=== PATIENT | male | born 1960 | race Caucasian/White ===

== ENCOUNTER 2018-12-15 18:49 | Emergency (ER) | payer BC, SELFPAY ==
[2018-12-15 18:50] VITALS: BP 150/98; PULSE 100; RESP 16; TEMP 36; O2SAT 96; BMI 28.5
--- NOTE | 2018-12-15 19:01 | CT_ITS ---
STUDY: CT ABDOMEN AND PELVIS WITHOUT CONTRAST REASON FOR EXAM: Male, 58 years old. Nausea and vomiting with diarrhea for 4 days. RADIATION DOSAGE (If Supplied By Facility): CTDIvol = ( 11.50 ) mGy, DLP = ( 566.01 ) mGycm TECHNIQUE: Transaxial images were obtained from the dome of the diaphragm to the symphysis pubis without oral contrast, and without intravenous contrast. Sagittal and coronal images were reconstructed. Individualized dose optimization techniques were used for this CT. COMPARISON: 01 September 2014 FINDINGS: The visualized lung bases are unremarkable. The visualized portions of the heart are within normal limits. Normal liver. Normal gallbladder and extrahepatic biliary system. Normal spleen. Normal pancreas. There is a small, circumscribed, smooth, low attenuation left adrenal mass, consistent with an adrenal adenoma. Normal right adrenal gland. Small hypodensity within the anterior superior cortex of the right kidney is present consistent with likely underlying cyst measuring 1.3 cm. Normal left kidney. Normal visualized stomach. Normal small intestine. Normal colon. The appendix is visualized and appears normal. Normal abdominal aorta. Normal inferior vena cava. Normal retroperitoneum. Normal urinary bladder. There is enlargement of the prostate gland. There is a large left inguinal hernia containing colonic bowel with no evidence of obstruction or inflammation. Small fat-containing right inguinal hernia is also noted. Small umbilical fat-containing hernia is also noted. There are diffuse degenerative changes of the visualized lumbar spine. CT/Abdomen/Pelvis without Cont IMPRESSION: 1. Large left colonic containing inguinal hernia with no evidence of obstruction or inflammation. Right inguinal fat-containing hernia is also noted. 2. Left adrenal adenoma. Electronically Signed: Robel Maxwell DO at 20:27 EST , Service support ,
--- NOTE | 2018-12-15 19:07 | ED.DCSUM_ITS ---
- ER Visit Summary Date of Service: 12/15/18 Chief Complaint: Abdominal pain, nausea vomiting and diarrhea History of Present Illness: The patient is a 58 M who presents with the above symptoms. Started 4 days ago. He has sharp pains in the left part of his abdomen. It does not radiate. He has had nausea with vomiting as well as diarrhea. No blood in any of the vomiting or diarrhea. He denies any urinary symptoms. He took nothing for it at home. He denies any fevers. Physical Examination: Vital signs reviewed. HEENT exam unremarkable. Heart is regular rate and rhythm without murmurs. Lungs have inhibitory and expiratory wheezing bilaterally. Abdomen is soft with left-sided tenderness to palpation. Extremities reveal no edema. Neurologic exam normal. Test Results: Laboratory studies show glucose of 155 otherwise unremarkable. CAT scan reveals an inguinal hernia on the left with no obstruction. Emergency Department Course and Treatment: Oral Bentyl, Zofran and albuterol. He feels much better. I feel this is likely a viral etiology. He will need to see a surgeon as an outpatient for his inguinal hernia. I do not feel he requires any emergent consultation as he has no obstruction associated with this. It is not incarcerated or strangulated. Patient will be given Bentyl and Zofran as an outpatient. He will follow-up with his PCP Treatment Plan: [] Disposition: Discharge Impression: Abdominal pain, nausea vomiting and diarrhea This note was generated with [employer] dictation software. It may contain incorrect words, spelling, and punctuation that were not noted in review of the chart prior to signing ED Disposition - Plan for ED Patient: Chief Complaint: Nausea/Vomiting/Diarrhea Referrals: Angel Loya DO [Primary Care Provider] -
[2018-12-15] MEDS: Ondansetron 4 MG/2 ML Vial IV (19:20)
[2018-12-15 19:34] LABS: Absolute Neutrophil Count 6.1 X10^3/uL (2.0-7.7); Basophil# 0.01 X10^3/uL; Basophil% 0.1 % (0-1); Eosinophil# 0.01 X10^3/uL; Eosinophils% 0.1 % (0-5); Hematocrit 43.7 % (40-54); Hemoglobin 14.9 g/dl (13.0-16.5); Lymphocyte % 12.9 % (19-41); Mean Corp Hgb Conc 34.1 g/gl (32-36); Mean Corpuscular Hgb 30.6 pg (27.0-32.0); Mean Corpuscular Volume 89.7 fL (80-94); Mean Platelet Vol. 9.4 fl (6.2-12.0); Monocyte# 0.61 X10^3/uL; Monocyte% 7.9 % (0-10); Neutrophil # 6.13 X10^3/uL (2.7-7.7); Neutrophil % 78.9 % (47-70); POSITIVE COUNT NO; POSITIVE DIFFERENTIAL NO; POSITIVE MORPHOLOGY NO; Platelet Count 322 K/mm3 (150-450); RBC Distribution Width CV 13.5 % (11.6-14.6); RBC Distribution Width SD 44.4 fl (35.1-43.9); Red Blood Count 4.87 M/mm3 (4.6-6.2); White Blood Count 7.8 K/mm3 (4.4-11.0)
[2018-12-15] MEDS: Dicyclomine 10 MG Capsule 20 MG PO (19:45)
[2018-12-15 19:47] VITALS: BP 166/90; PULSE 86; RESP 18; TEMP 36.6; O2SAT 96
[2018-12-15 20:03] LABS: ALB/GLOB Ratio 1.1 RATIO (0.9-2.4); AST(SGOT) 26 U/L (15-37); Alanine Aminotransfer ALT/SGPT 23 U/L (16-61); Albumin, Serum 4.3 g/dL (3.2-5.0); Alkaline Phosphatase 100 U/L (45-117); Anion Gap 9 (5-15); BUN 18 mg/dL (7-18); BUN/Creat Ratio 16.8 RATIO (10-20); Calcium,Total 9.1 mg/dL (8.5-10.1); Chloride 100 mmol/L (98-107); Creatinine, Serum 1.07 mg/dL (0.70-1.30); EST Glomerular Filtration Rate 76 mL/min (>60); Est Glom Filt Rate - Afr Amer 92 mL/min (>60); Globulin 3.8 g/dL (2.2-4.2); Glucose 155 mg/dL (74-106); Lipase 84 U/L (73-393); Potassium 3.9 mmol/L (3.5-5.1); Protein, Total 8.1 g/dL (6.4-8.2); Sodium Level 136 mmol/L (136-145)
[2018-12-15] MEDS: Albuterol 2.5 MG/3 ML VIAL.NEB. INHALATION (20:05)
[2018-12-15 20:07] VITALS: PULSE 66; RESP 18
[2018-12-15 20:23] LABS: Bacteria 0 SEEN /hpf (None Seen); Red Blood Cells-Urine 0 SEEN /hpf (0-5); Squamous Epithelial Cells - UA 0 SEEN /hpf (0-5); White Blood Cells 0 SEEN /hpf (0-5)
[2018-12-15 20:40] LABS: Color, Urine Yellow (Yellow); Glucose, Dipstick Normal (Normal); Leukocyte Esterase-Dipstick 25 /ul (Negative); Nitrite-Dipstick Negative (Negative); Occult Blood-Urine 10 /ul (Negative); Protein-Dipstick 30 mg/dl (Negative); Urine Clarity Clear (Clear); Urine Urobilinogen 1 mg/dl (Normal)
[2018-12-15 20:41] LABS: Urine Bilirubin Dipstick 1 mg/dL (Negative)
[2018-12-15 20:42] LABS: Ketone-Dipstick 150 mg/dl (Negative); Mucous, Urine 3+ /hpf (<or=2+)
--- NOTE | 2018-12-15 20:54 | ED.DEP ---
ED Disposition - Plan for ED Patient: Disposition: Home or Assisted Living Chief Complaint: Nausea/Vomiting/Diarrhea Instructions: ED Diet Vomiting Diarrhea Prescriptions: Ondansetron [Zofran Odt] 4 mg PO Q8H PRN PRN #10 tab PRN Reason: Nausea Dicyclomine HCl [Bentyl] 20 mg PO TIDAC #20 cap Referrals: Angel Loya DO [Primary Care Provider] -
[2018-12-15 21:06] VITALS: BP 142/96; PULSE 81; RESP 18; O2SAT 95
== END 2018-12-15 21:25 | disposition home or self-care (01) ==
PROVIDERS: Emergency Provider Emergency Medicine; Family Provider Family Medicine; PCP Family Medicine
DX: R10.9 Unspecified abdominal pain (principal); R19.7 Diarrhea, unspecified; R11.2 Nausea with vomiting, unspecified; Z72.0 Tobacco use; Z79.82 Long term (current) use of aspirin
CPT/HCPCS: 74176; 80053; 81001; 83690; 85025; 94640; 96374; 99283; A4216; J2405

== ENCOUNTER 2021-04-22 07:40 | Emergency (ER) | payer OTHER, MEDICAID, SELFPAY ==
[2021-04-22 07:42] VITALS: BP 142/95; PULSE 78; RESP 15; TEMP 37; O2SAT 100; BMI 22.6
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
[2021-04-22 07:59] LABS: Absolute Lymphocyte Count 0.73 X10^3/uL (0.83-4.51); Absolute Neutrophil Count 3.1 X10^3/uL (2.0-7.7); Basophil# 0.01 X10^3/uL; Basophil% 0.2 % (0-1); Eosinophil# 0.02 X10^3/uL; Eosinophils% 0.5 % (0-5); Hematocrit 40.1 % (40-54); Hemoglobin 13.7 g/dL (13.0-16.5); Lymphocyte # 0.73 X10^3/ul (0.83-4.51); Lymphocyte % 17.2 % (19-41); Mean Corp Hgb Conc 34.2 g/dL (32-36); Mean Corpuscular Hgb 32.2 pg (27.0-32.0); Mean Corpuscular Volume 94.4 fL (80-94); Mean Platelet Vol. 9.5 fl (6.2-12.0); Monocyte# 0.33 X10^3/uL; Monocyte% 7.8 % (0-10); NRBC Flagged by Analyzer 0 % (0-5); Neutrophil # 3.13 X10^3/uL (2.7-7.7); Neutrophil % 73.8 % (47-70); Platelet Count 268 K/mm3 (150-450); RBC Distribution Width CV 13.7 % (11.6-14.6); RBC Distribution Width SD 47.3 fl (35.1-43.9); Red Blood Count 4.25 M/mm3 (4.6-6.2); White Blood Count 4.2 K/mm3 (4.4-11.0)
[2021-04-22] MEDS: Morphine 4 MG/ML Syringe IV (08:03)
[2021-04-22] MEDS: Ondansetron 4 MG/2 ML Vial IV (08:03)
[2021-04-22] MEDS: 0.9% Normal Saline 1,000 ML 1000 ML IV (08:11)
[2021-04-22 08:37] LABS: Bacteria 0 SEEN /hpf (None Seen); Red Blood Cells-Urine 0 SEEN /hpf (0-5); Squamous Epithelial Cells - UA 0 SEEN /hpf (0-5)
[2021-04-22 08:38] LABS: Color, Urine Yellow (Yellow); Glucose, Dipstick Normal (Normal); Leukocyte Esterase-Dipstick 25 /ul (Negative); Nitrite-Dipstick Positive (Negative); Occult Blood-Urine Negative /ul (Negative); Protein-Dipstick 30 mg/dl (Negative); Urine Clarity Clear (Clear); Urine Urobilinogen 8 mg/dl (Normal)
[2021-04-22 08:41] LABS: ALB/GLOB Ratio 1.1 RATIO (0.9-2.4); AST(SGOT) 47 U/L (15-37); Alanine Aminotransfer ALT/SGPT 31 U/L (16-61); Albumin, Serum 3.8 g/dL (3.2-5.0); Alkaline Phosphatase 92 U/L (45-117); Anion Gap 10 (5-15); BUN 14 mg/dL (7-18); BUN/Creat Ratio 20.8 RATIO (10-20); Calcium,Total 9.5 mg/dL (8.5-10.1); Chloride 93 mmol/L (98-107); Creatinine, Serum 0.67 mg/dL (0.70-1.30); EST Glomerular Filtration Rate 128 mL/min (>60); Est Glom Filt Rate - Afr Amer 155 mL/min (>60); Estimated Creatinine Clearance 126.77 ml/min; Globulin 3.4 g/dL (2.2-4.2); Glucose 110 mg/dL (74-106); Lipase 138 U/L (73-393); Potassium 3.9 mmol/L (3.5-5.1); Protein, Total 7.2 g/dL (6.4-8.2); Sodium Level 132 mmol/L (136-145)
[2021-04-22 08:41] LABS: Urine Bilirubin Dipstick 3 mg/dL (Negative)
[2021-04-22 08:42] LABS: Ketone-Dipstick 150 mg/dl (Negative)
[2021-04-22 08:44] LABS: Mucous, Urine 2+ /hpf (<or=2+); White Blood Cells 0-5 SEEN /hpf (0-5)
[2021-04-22] MEDS: HYDROmorphone 1 MG/ML Syringe IV (09:23)
[2021-04-22 10:24] VITALS: BP 141/89; PULSE 75; RESP 16; O2SAT 99
== END 2021-04-22 10:30 | disposition home or self-care (01) ==
PROVIDERS: Emergency Provider Emergency Medicine; PCP Family Medicine
DX: M54.5 Low back pain (principal); J44.9 Chronic obstructive pulmonary disease, unspecified; F17.210 Nicotine dependence, cigarettes, uncomplicated
CPT/HCPCS: 74176; 80053; 81001; 83690; 85025; 96361; 96374; 96375; 99285; J7030; A4216; J2405

== ENCOUNTER 2021-06-14 13:56 | Inpatient (IN) | payer OTHER, MEDICAID, SELFPAY ==
[2021-06-14 13:57] VITALS: BP 140/100; PULSE 88; RESP 12; TEMP 36.7; O2SAT 93; BMI 22.4
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
[2021-06-14 14:04] VITALS: O2SAT 97
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
[2021-06-14] MEDS: HYDROcodone Bitartrate/Apap 5/325 Tablet PO (16:52)
[2021-06-14 17:39] LABS: Absolute Neutrophil Count 5.2 X10^3/uL (2.0-7.7); Basophil# 0.04 X10^3/uL; Basophil% 0.6 % (0-1); Eosinophil# 0.03 X10^3/uL; Eosinophils% 0.4 % (0-5); Hematocrit 38.9 % (40-54); Hemoglobin 13.3 g/dL (13.0-16.5); Lymphocyte % 23.4 % (19-41); Mean Corp Hgb Conc 34.2 g/dL (32-36); Mean Corpuscular Hgb 33.1 pg (27.0-32.0); Mean Corpuscular Volume 96.8 fL (80-94); Mean Platelet Vol. 8.8 fl (6.2-12.0); Monocyte# 0.29 X10^3/uL; NRBC Flagged by Analyzer 0 % (0-5); Neutrophil % 71.5 % (47-70); Platelet Count 265 K/mm3 (150-450); RBC Distribution Width CV 13.1 % (11.6-14.6); RBC Distribution Width SD 46.7 fl (35.1-43.9); Red Blood Count 4.02 M/mm3 (4.6-6.2); White Blood Count 7.3 K/mm3 (4.4-11.0)
[2021-06-14 17:55] LABS: ALB/GLOB Ratio 1.2 RATIO (0.9-2.4); AST(SGOT) 49 U/L (15-37); Alanine Aminotransfer ALT/SGPT 35 U/L (16-61); Albumin, Serum 3.7 g/dL (3.2-5.0); Alkaline Phosphatase 72 U/L (45-117); Anion Gap 6 (5-15); BUN 10 mg/dL (7-18); BUN/Creat Ratio 16.1 RATIO (10-20); Calcium,Total 7.9 mg/dL (8.5-10.1); Chloride 104 mmol/L (98-107); Creatinine, Serum 0.62 mg/dL (0.70-1.30); EST Glomerular Filtration Rate 140 mL/min (>60); Est Glom Filt Rate - Afr Amer 170 mL/min (>60); Estimated Creatinine Clearance 139.72 ml/min; Glucose 75 mg/dL (74-106); Potassium 3.6 mmol/L (3.5-5.1); Protein, Total 6.7 g/dL (6.4-8.2); Sodium Level 140 mmol/L (136-145)
[2021-06-14 17:56] VITALS: BP 156/105; PULSE 77; RESP 18; O2SAT 92
--- NOTE | 2021-06-14 18:54 | ED.RN ---
CALLED AND LEFT A MESSAGE FOR HIS BROTHER SYED TO RETURN OUR CALL TO COME PICK HIM UP.
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
--- NOTE | 2021-06-14 21:16 | ED.RN ---
JOSE العراقي SISTER [phone]
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
[2021-06-15] VITALS (10 sets, daily range): BP systolic 119–152; BP diastolic 72–102; PULSE 77–103; RESP 15–20; TEMP 36.6–36.8; O2SAT 93–98; BMI 22.4
[2021-06-15] MEDS: LORazepam 2 MG/ML Syringe 1 MG IV (00:08)
[2021-06-15] MEDS: Phenobarbital 32.4 MG Tablet 97.2 MG PO ×2 (00:08→04:21)
[2021-06-15] MEDS: LORazepam 2 MG/ML Syringe IV (02:18)
[2021-06-15 02:21] LABS: Amphetamine Urine VISTA NEGATIVE (<1000 ng/mL); Barbiturate Urine VISTA NEGATIVE (< 200 ng/mL); Benzodiazepine Urine VISTA NEGATIVE (< 200 ng/mL); Cocaine Urine VISTA NEGATIVE (< 300 ng/mL); Ecstacy Urine VISTA NEGATIVE (< 500 ng/mL); Methadone Urine VISTA NEGATIVE (< 300 ng/mL); PCP Urine VISTA NEGATIVE (< 25 ng/mL); THC Urine VISTA NEGATIVE (< 50 ng/mL); Vista UDS pH Range 6
--- NOTE | 2021-06-15 05:54 | ED.RN ---
PER [facility] PT NEEDS TO BE OBSERVED UNTIL 10AM, THEN THEY WILL RE-EVALUATE FOR PLACEMENT.
[2021-06-15] MEDS: Ondansetron 4 MG/2 ML Vial IV (06:58)
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
[2021-06-15] MEDS: proMETHazine 25 MG Tablet PO (07:59)
--- NOTE | 2021-06-15 08:09 | ED.RN ---
ramp detox contract resigned perr pt. pts brother called and updated. ciwa score a 2. phergan tab given for continued mild nausea
[2021-06-15] MEDS: Thiamine Hydrochloride 100 MG Tablet PO (10:05)
[2021-06-15] MEDS: Ibuprofen 600 MG Tablet PO ×2 (10:05→18:20)
[2021-06-15] MEDS: Phenobarbital 32.4 MG Tablet PO ×4 (10:05→21:52)
[2021-06-15] MEDS: Folic Acid 1 MG Tablet PO (10:05)
[2021-06-15] MEDS: Acetaminophen 500 MG Tablet PO (15:19)
[2021-06-15] MEDS: Ondansetron 8 MG Tablet PO (15:20)
[2021-06-15] MEDS: hydrOXYzine PAM 25 MG Capsule 50 MG PO (15:20)
[2021-06-15] MEDS: Nicotine Polacrilex 2 MG GUM PO (18:28)
[2021-06-15] MEDS: 0.9% Saline Lock 10 ML Syringe IV (21:54)
[2021-06-16 01:44] VITALS: BP 103/68; PULSE 88; RESP 16; TEMP 36.5; O2SAT 95
[2021-06-16] MEDS: Phenobarbital 32.4 MG Tablet PO ×6 (01:51→20:54)
[2021-06-16] MEDS: Ondansetron 8 MG Tablet PO ×3 (04:18→20:53)
[2021-06-16 05:42] LABS: Absolute Lymphocyte Count 1.01 X10^3/uL (0.83-4.51); Basophil# 0.02 X10^3/uL; Basophil% 0.6 % (0-1); Eosinophil# 0.06 X10^3/uL; Eosinophils% 1.8 % (0-5); Hematocrit 34.5 % (40-54); Hemoglobin 11.7 g/dL (13.0-16.5); Lymphocyte # 1.01 X10^3/ul (0.83-4.51); Lymphocyte % 30.1 % (19-41); Mean Corp Hgb Conc 33.9 g/dL (32-36); Mean Corpuscular Hgb 32.8 pg (27.0-32.0); Mean Corpuscular Volume 96.6 fL (80-94); Mean Platelet Vol. 9.1 fl (6.2-12.0); Monocyte# 0.26 X10^3/uL; Monocyte% 7.8 % (0-10); NRBC Flagged by Analyzer 0 % (0-5); Neutrophil # 1.99 X10^3/uL (2.7-7.7); Neutrophil % 59.4 % (47-70); Platelet Count 193 K/mm3 (150-450); RBC Distribution Width CV 12.4 % (11.6-14.6); RBC Distribution Width SD 44.5 fl (35.1-43.9); Red Blood Count 3.57 M/mm3 (4.6-6.2); White Blood Count 3.4 K/mm3 (4.4-11.0)
[2021-06-16 06:08] LABS: ALB/GLOB Ratio 1.1 RATIO (0.9-2.4); AST(SGOT) 22 U/L (15-37); Alanine Aminotransfer ALT/SGPT 21 U/L (16-61); Alkaline Phosphatase 70 U/L (45-117); Anion Gap 4 (5-15); BUN 11 mg/dL (7-18); BUN/Creat Ratio 22.1 RATIO (10-20); Calcium,Total 8.3 mg/dL (8.5-10.1); Chloride 100 mmol/L (98-107); EST Glomerular Filtration Rate 182 mL/min (>60); Est Glom Filt Rate - Afr Amer 220 mL/min (>60); Estimated Creatinine Clearance 173.25 ml/min; Globulin 2.8 g/dL (2.2-4.2); Glucose 91 mg/dL (74-106); Phosphorus 3.7 mg/dL (2.5-4.9); Protein, Total 5.8 g/dL (6.4-8.2); Sodium Level 132 mmol/L (136-145)
[2021-06-16 07:25] VITALS: BP 145/101; PULSE 73; RESP 18; TEMP 36.8; O2SAT 95
[2021-06-16] MEDS: Ibuprofen 600 MG Tablet PO ×2 (09:25→20:54)
[2021-06-16] MEDS: Folic Acid 1 MG Tablet PO (09:25)
[2021-06-16] MEDS: Thiamine Hydrochloride 100 MG Tablet PO (09:26)
[2021-06-16] MEDS: cycloBENZAPRine HCl 10 MG Tablet PO ×2 (09:32→20:53)
[2021-06-16 09:50] VITALS: BP 130/69; PULSE 85; RESP 18; TEMP 37.1; O2SAT 97
--- NOTE | 2021-06-16 11:17 | ADDICTION ---
This blurb writer met with PT to conduct ASAM, MSE, AUDIT assessments and to plan for d/c. All assessments completed. PT plans to f/u with [facility] post d/c for assessment and treatment.
[2021-06-16 16:23] VITALS: BP 136/83; PULSE 65; RESP 16; TEMP 36.7; O2SAT 98
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
[2021-06-16 20:43] VITALS: BP 118/70; PULSE 76; RESP 17; TEMP 37; O2SAT 97
[2021-06-16] MEDS: traZODone 100 MG Tablet PO (20:53)
[2021-06-16] MEDS: hydrOXYzine PAM 25 MG Capsule 50 MG PO (20:54)
[2021-06-17 02:02] VITALS: BP 118/73; PULSE 70; RESP 16; TEMP 36.7; O2SAT 97
[2021-06-17] MEDS: Phenobarbital 32.4 MG Tablet PO ×6 (02:03→22:52)
[2021-06-17] MEDS: hydrOXYzine PAM 25 MG Capsule 50 MG PO (04:31)
[2021-06-17] MEDS: Gabapentin 300 MG Capsule PO (09:12)
[2021-06-17] MEDS: Ibuprofen 600 MG Tablet PO ×2 (09:12→18:06)
[2021-06-17] MEDS: Folic Acid 1 MG Tablet PO (09:13)
[2021-06-17] MEDS: Thiamine Hydrochloride 100 MG Tablet PO (09:13)
[2021-06-17 13:22] VITALS: BP 128/85; PULSE 87; RESP 18; TEMP 36.9; O2SAT 100
[2021-06-17] MEDS: Acetaminophen 500 MG Tablet PO ×2 (13:41→22:52)
--- NOTE | 2021-06-17 15:35 | CASEMGMT ---
Social Work Note SW updated that pt is requesting housing resources. SW in to speak with pt. SW introduced self and role at [facility]. SW provided pt with housing resources including homeless shelters, [facility] [employer], and [facility] contact information. SW encouraged pt to also speak with [facility] SW tomorrow as she may have additional housing resources. Pt states understanding. Meaghan Espinosa JEWEL BEARING FACER, PHOTOGRAPHER SCIENTIFIC
[2021-06-17] MEDS: cycloBENZAPRine HCl 10 MG Tablet PO (18:06)
[2021-06-17] MEDS: HYDROcodone Bitartrate/Apap 5/325 Tablet PO ×2 (18:06→22:52)
[2021-06-17 18:08] VITALS: BP 127/79; PULSE 81; RESP 18; TEMP 37.2; O2SAT 100
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
[2021-06-17 22:47] VITALS: BP 116/79; PULSE 84; RESP 17; TEMP 36.8; O2SAT 96
[2021-06-17] MEDS: traZODone 100 MG Tablet PO (22:52)
[2021-06-18 02:31] VITALS: BP 113/74; PULSE 80; RESP 16; TEMP 36.5; O2SAT 96
[2021-06-18] MEDS: Ibuprofen 600 MG Tablet PO ×2 (05:01→18:11)
[2021-06-18] MEDS: cycloBENZAPRine HCl 10 MG Tablet PO (05:01)
[2021-06-18] MEDS: Phenobarbital 32.4 MG Tablet PO ×4 (05:02→23:44)
[2021-06-18 08:05] VITALS: BP 121/78; PULSE 70; RESP 18; TEMP 36.4; O2SAT 98
[2021-06-18] MEDS: Thiamine Hydrochloride 100 MG Tablet PO (08:07)
[2021-06-18] MEDS: Folic Acid 1 MG Tablet PO (08:07)
[2021-06-18] MEDS: HYDROcodone Bitartrate/Apap 5/325 Tablet PO ×3 (10:04→21:36)
--- NOTE | 2021-06-18 10:20 | CASEMGMT ---
Social Work Note Monica with [facility] updated this worker that she spoke with pt regarding housing options and residential through [facility]. Pt had told Monica that he didn't like [facility] and will just follow up with [facility] at discharge. Meaghan Espinosa WHEEL SHOP SUPERVISOR, FISH PROCESSOR
--- NOTE | 2021-06-18 12:21 | PCM.DC ---
Discharge Instructions Diet Discharge Diet: No restrictions Activity Discharge Activity: Return to Normal Activity Weight Bearing Status: Full weight bearing Follow Up Care Test Results: Test results from this visit will be discussed in further detail at your follow-up appointment, if applicable. Discharge Plan Admission Admit Date/Time: 06/15/21 07:24 Primary Reason for Your Visit: alcohol detox Attending Provider: Angel Orourke Primary Care Provider: Angel Loya Instructions Patient Instructions: ED Rib Fracture Additional Instructions / Restrictions: Follow-up with outpatient alcohol detox services as soon as possible Discharge Orders/Prescriptions Prescriptions: New tramadol [Ultram] 50 mg tablet 50 - 100 mg PO Q6H PRN (Reason: pain) Qty: 30 RF: 0 ibuprofen 600 mg tablet 600 mg PO Q6H PRN (Reason: pain) Qty: 60 RF: 0 Discontinued cyclobenzaprine [cyclobenzaprine] 10 MG tablet 10 mg PO TID PRN (Reason: Muscle Spasm) Qty: 20 RF: 0 hydrocodone-acetaminophen [hydrocodone-acetaminophen] 1 TABLET tablet 1 tab PO Q4H PRN PRN (Reason: Pain) 3 Days Qty: 15 RF: 0 naproxen 500 MG tablet 500 mg PO BID RF: 0 Referrals / Follow Up: Angel Loya DO [Primary Care Provider] - Within 2 Weeks Disposition Disposition (needs filled in before D/C Order can be placed): Home, Self Care
[2021-06-18 14:23] VITALS: BP 112/83; PULSE 68; RESP 16; TEMP 36.8; O2SAT 97
--- NOTE | 2021-06-18 15:37 | CASEMGMT ---
Social Work Note RN updated this worker that pt called [facility] and there are no beds available. SW in to speak with pt. LEE asked pt if he has financials to afford a Motel/Hotel for the night/few days. Pt states he doesn't have the financials to do that as he needs to save his money. LEE spoke with pt about additional Homeless Shelters including [facility] in [place] and shelters in [place]. Pt states his brother may be able to take him to those places but he is not sure how he would get back to [place]. Pt states he wants to remain in [place] as his job is in [place]. Pt states he would like to get residential treatment at [facility]. LEE informed pt that when [facility] met with pt today, he had told them he didn't want anything to do with them. Pt states Well they offer housing while getting treatment and I would get to stay in [place]. SW informed pt that medically pt is ready for discharge today. SW informed pt that this worker will call Monica with [facility] and update her and see what she says. Pt states understanding. LEE [facility] a [facility] and updated her pt is now requesting residential at [facility]. Monica states she will work on it but will not be able to get pt to residential today. LEE updated physician. Pt able to stay tonight while [facility] works on residential treatment. LEE updated pt. LEE updated RN. Meaghan Espinosa PRICER BAGGER, BIT SHARPENER OPERATOR
--- NOTE | 2021-06-18 16:15 | CASEMGMT ---
Social Work Note SW updated by RN that pt had document stating he was summoned to appear in Court today. Pt had looked through his pants pockets and discovered the letter stating he had to appear in court today. SW in to speak with pt with RN. SW reviewed letter. Pt was summoned to appear at [facility] today. SW informed pt that this worker can fax letter to [facility] informing them that pt is currently at [facility]. Pt agreeable to this worker faxing letter to [facility]. LEE faxed letter to [facility]. Meaghan Espinosa DUAL HOSE CEMENTER, OFFAL TRIMMER
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
[2021-06-18 21:44] VITALS: BP 138/85; PULSE 70; RESP 18; TEMP 36.9; O2SAT 100
[2021-06-18] MEDS: traZODone 100 MG Tablet PO (23:44)
[2021-06-18 23:45] VITALS: BP 134/95; PULSE 63; RESP 16; TEMP 36.7; O2SAT 98
[2021-06-19 05:25] VITALS: BP 105/66; PULSE 66; RESP 18; TEMP 36.4; O2SAT 99
[2021-06-19] MEDS: Phenobarbital 32.4 MG Tablet PO ×2 (05:26→11:09)
[2021-06-19 07:32] VITALS: BP 137/82; PULSE 62; RESP 16; TEMP 36.6; O2SAT 98
[2021-06-19] MEDS: Folic Acid 1 MG Tablet PO (07:46)
[2021-06-19] MEDS: HYDROcodone Bitartrate/Apap 5/325 Tablet PO ×2 (07:46→19:33)
[2021-06-19] MEDS: Thiamine Hydrochloride 100 MG Tablet PO (07:46)
--- NOTE | 2021-06-19 09:52 | ADDICTION ---
This gag writer made referral to [facility] for residential treatment by PT request. PT has not been approved or denied as of 06/19/21 @ 9:52am. This gag writer will coordinate with [facility] and [facility].
--- NOTE | 2021-06-19 13:30 | CASEMGMT ---
Addendum entered by Meaghan Espinosa 06/19/21 14:42: LEE received message from Monica with [facility] tomorrow, asked if pt can remain at [facility]. SW updated physician. Pt is able to remain at [facility] tonight. LEE placed a call back to [facility] with [facility] and left message updating her pt to remain at [facility] with direct admit to [facility] residential tomorrow. Original Note: Social Work Note SW received message from Monica with [facility] asking if pt can remain at [facility] until Wednesday when pt can direct admit to [facility] Residential. SW updated physician. Pt cannot remain at [facility] until Wednesday, pt needs to find a different residential treatment. LEE placed a call back to [facility] with [facility] and updated her. Monica states she will figure it out. SW to continue to follow. Meaghan Espinosa RAIL CAR REPAIRMAN, HYDRAULIC PRESS SERVICER
[2021-06-19 13:40] VITALS: BP 129/73; PULSE 82; RESP 16; TEMP 36.7; O2SAT 97
[2021-06-19] MEDS: Gabapentin 300 MG Capsule PO (13:56)
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
[2021-06-19 19:27] VITALS: BP 123/85; PULSE 81; RESP 18; TEMP 37.1; O2SAT 98
[2021-06-19] MEDS: hydrOXYzine PAM 25 MG Capsule 50 MG PO (21:12)
[2021-06-19] MEDS: 0.9% Saline Lock 10 ML Syringe IV (21:13)
[2021-06-19 23:03] VITALS: BP 128/83; PULSE 61; RESP 16; TEMP 36.6; O2SAT 94
[2021-06-19] MEDS: traZODone 100 MG Tablet PO (23:05)
[2021-06-20 06:00] VITALS: BP 153/85; PULSE 81; RESP 18; TEMP 36.6; O2SAT 99
[2021-06-20] MEDS: HYDROcodone Bitartrate/Apap 5/325 Tablet PO (06:04)
--- NOTE | 2021-06-20 06:47 | PCM.DC ---
Discharge Instructions Diet Discharge Diet: No restrictions Activity Discharge Activity: Return to Normal Activity Weight Bearing Status: Full weight bearing Follow Up Care Test Results: Test results from this visit will be discussed in further detail at your follow-up appointment, if applicable. Discharge Plan Admission Admit Date/Time: 06/15/21 07:24 Primary Reason for Your Visit: alcohol detox Attending Provider: Angel Orourke Primary Care Provider: Angel Loya Instructions Patient Instructions: ED Rib Fracture Additional Instructions / Restrictions: Follow-up with outpatient alcohol detox services as soon as possible Discharge Orders/Prescriptions Prescriptions: Discontinued cyclobenzaprine [cyclobenzaprine] 10 MG tablet 10 mg PO TID PRN (Reason: Muscle Spasm) Qty: 20 RF: 0 hydrocodone-acetaminophen [hydrocodone-acetaminophen] 1 TABLET tablet 1 tab PO Q4H PRN PRN (Reason: Pain) 3 Days Qty: 15 RF: 0 naproxen 500 MG tablet 500 mg PO BID RF: 0 Referrals / Follow Up: Angel Loya DO [Primary Care Provider] - Within 2 Weeks Disposition Disposition (needs filled in before D/C Order can be placed): Home, Self Care
[2021-06-20] MEDS: Folic Acid 1 MG Tablet PO (07:28)
[2021-06-20] MEDS: Thiamine Hydrochloride 100 MG Tablet PO (07:28)
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
== END 2021-06-20 08:10 | disposition home or self-care (01) | DRG 897 ==
LOC: ED 06-15 00:59 → MS3 06-15 08:00
PROVIDERS: Emergency Medicine; Admitting Provider Internal Medicine; Emergency Provider Student in an Organized Health Care Education/Training Program; PCP Family Medicine; Visit Provider Internal Medicine
DX: F10.239 Alcohol dependence with withdrawal, unspecified (principal); S22.42XA Multiple fractures of ribs, left side, initial encounter for closed fracture; J44.9 Chronic obstructive pulmonary disease, unspecified; S02.2XXA Fracture of nasal bones, initial encounter for closed fracture; F17.210 Nicotine dependence, cigarettes, uncomplicated; Y90.8 Blood alcohol level of 240 mg/100 ml or more; M19.90 Unspecified osteoarthritis, unspecified site; V57.0XXA Driver of pick-up truck or van injured in collision with fixed or stationary object in nontraffic accident, initial encounter; Y93.I9 Activity, other involving external motion; Y92.89 Other specified places as the place of occurrence of the external cause; Y99.8 Other external cause status
CPT/HCPCS: 36415; 70450; 70486; 71045; 72125; 72170; 80053; 80307; 82077; 84100; 85025; 87426; 93005; 99285; 99406; A4216; J2405

== ENCOUNTER → 2021-08-22 14:33 | Outpatient (CLI) | payer OTHER, MEDICAID, SELFPAY ==
[2021-08-22 12:16] LABS: Hematocrit 38.6 % (40-54); Hemoglobin 12.7 g/dL (13.0-16.5); Mean Corp Hgb Conc 32.9 g/dL (32-36); Mean Corpuscular Hgb 30.7 pg (27.0-32.0); Mean Corpuscular Volume 93.2 fL (80-94); Mean Platelet Vol. 9.7 fl (6.2-12.0); Platelet Count 211 K/mm3 (150-450); RBC Distribution Width CV 11.7 % (11.6-14.6); RBC Distribution Width SD 40.6 fl (35.1-43.9); Red Blood Count 4.14 M/mm3 (4.6-6.2)
[2021-08-22 14:46] LABS: Probe Check PASS; Specimen Processing Control PASS
== END ==
PROVIDERS: Anesthesiology; PCP Internal Medicine; Referring Provider Surgery; Visit Provider Surgery
DX: Z01.818 Encounter for other preprocedural examination (principal); Z20.822 Contact with and (suspected) exposure to COVID-19
CPT/HCPCS: 36415; 85027; 87081; 87426; 87635; C9803; U0005; U0003

== ENCOUNTER → 2021-09-24 09:04 | Outpatient (CLI) | payer OTHER, MEDICAID, SELFPAY ==
[2021-09-24 12:42] LABS: PSA,Total - Annual Screen 6.02 ng/mL (0.00-4.00)
[2021-09-24 12:43] LABS: Cholesterol 185 mg/dL (200); High Density Lipoprotein 80 mg/dL; Triglycerides 65 mg/dL; Very Low Density Lipoprotein 13 mg/dL (5-40)
== END ==
PROVIDERS: PCP Internal Medicine; Referring Provider Internal Medicine; Visit Provider Internal Medicine
DX: Z00.00 Encounter for general adult medical examination without abnormal findings (principal); I10 Essential (primary) hypertension; Z12.5 Encounter for screening for malignant neoplasm of prostate
CPT/HCPCS: 36415; 80061; 84153; G0103

== ENCOUNTER 2021-11-11 09:18 | Day surgery (SDC) | payer OTHER, MEDICAID, SELFPAY ==
[2021-11-11] VITALS (7 sets, daily range): BP systolic 111–131; BP diastolic 67–86; PULSE 57–87; RESP 16–18; TEMP 36.1–36.4; O2SAT 94–100; BMI 29.6
--- NOTE | 2021-11-11 | HERN_PTH ---
PATIENT: ELIZABETH WILKES LOC: [facility] U#:[id number] AGE/SX: 61/M ROOM: RE11/11/[address]: Dr. Raymond Hyatt MD : 1960 BED: DIS: 11/11/2021 SPEC #: [id number] RECD: 11/11/21 15:52 STATUS: YANELY GALVIN #: [id number] CATHY: 11/11/21 00:[address]: Raymond Hyatt DEPT: SURGICAL PATHOLOGY RECD BY: Aiden Prabhakar ENTERED: 11/12/21 08:51 SP TYPE: Hernia OTHR DR: Dr. Lauren Vail MD Tissues: HERNIA Procedures: Surgery Specimen Level II HEADER OPERATION: Inguinal hernia with mesh PRE-OP DIAGNOSIS: Left inguinal hernia TISSUE SUBMITTED: Left hernia sac and cord lipoma MICROSCOPIC DIAGNOSIS Soft tissue of left inguinal region, excision: Fragments of fibrofatty tissue consistent with hernia sac and cord lipoma. AM:vijay 11/13/2021 MICROSCOPIC DESCRIPTION Slides are reviewed. GROSS DESCRIPTION Received in fixative is one container labeled with the patient's name and designated hernia sac and cord lipoma. The specimen consists of two irregular fragments of glistening pink-yellow fibrofatty tissue that in aggregate measure 12 x 8 x 2 cm. Serial sections do not reveal mass lesions. Farm Machinery Erector sections are submitted in one cassette. / AM:vijay 11/12/21 TC:5 CPT: 72040
--- NOTE | 2021-11-11 10:14 | PCM.HP.BLA ---
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 Is patient in pain?: Yes Allergies No Known Allergies Allergy (Verified 08/18/21 09:07) Medications acetaminophen 650 mg tablet,extended release 650 mg PO Q8H PRN #90 tab 08/14/21 [Rx Confirmed 08/18/21] albuterol sulfate 90 mcg/actuation aerosol inhaler 2 puff INHALATION Q6H PRN 08/14/21 [History Confirmed 08/18/21] budesonide-formoterol HFA 160 mcg-4.5 mcg/actuation aerosol inhaler 2 puff INHALATION BID #10.2 g 08/14/21 [Rx Confirmed 08/18/21] nicotine 14 mg/24 hr daily transdermal patch 14 mg TRANSDERMAL QDAY #14 patch 08/14/21 [Rx Confirmed 08/18/21] nicotine 21mg/24hr-14mg/24hr-7mg/24hr daily transderm patches,sequentl 1 patch TRANSDERMAL QDAY #70 patch 08/14/21 [Rx Confirmed 08/18/21] PFSH Medical History (Updated 08/18/21 @ 14:[address] Raymond Hyatt MD) Alcohol abuse Alcohol use Anxiety Back pain COPD (chronic obstructive pulmonary disease) COPD (chronic obstructive pulmonary disease) COPD (chronic obstructive pulmonary disease) Diabetes Left inguinal hernia Lower GI bleed Non-traumatic mid back pain Osteoarthritis of left knee Vasovagal syncope Surgical History History of hip replacement Family History (Updated 08/14/21 @ 09:27 by Helen Magdaleno) Mother Cancer Lymphoma Thyroid disorder Father Cancer pancreatic cancer Diabetes Social History Smoking Status: Current every day smoker tobacco type: cigarettes alcohol intake: current substance use type: does not use HPI HPI HPI: ELIZABETH WILKES, is a 61 M who presents to the office today for left inguinal hernia. This finding was first noticed by patient several years ago, but it has become more symptomatic. Patient is able to recall how this occurred believes it was related to lifting. He seeks evaluation now because it has become increasingly symptomatic and more difficult to reduce. He describes a history of constipation but is never required an ER evaluation for incarceration or obstipation. Patient has a personal history of smoking and he is currently working to quit while on the patch. His current use of cigarettes is 1-2 daily. Patient has no personal history of recurrent cutaneous infections including staph. New Patient currently is a part of [employer] and is 60 days sober from a alcohol habit. 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 Pertinent surgical history includes: None applicable (right hip arthroplasty) ROS General General: No weight change, appetite, fatigue, colon cancer, breast cancer or weakness HEENT HEENT: No difficulty swallowing, eye injury, eye surgery, swollen glands or hoarseness Endo Endocrine: No thyroid disease, diabetes mellitus, thyroid cancer, Hair loss, heat intolerance or cold intolerance Skin Skin: No rash or changing moles Breast Breast: No left breast lump, right breast lump, nipple discharge, breast pain, abnormal mammogram, abnormal US or breast enlargement Musc Musculoskeletal: Yes arthritis; No back problems, rheumatoid arthritis, gout or joint pain Cardio Cardiovascular: No murmur, pacemaker, heart disease, atrial fibrillation, high blood pressure, heart attack, heart stent, palpitations, shortness of breat with exertion or chest pain Psych Psychiatric: No depression, anxiety or hearing voices Resp Respiratory: Yes shortness of breath, No sleep apnea, No cough, Yes COPD, No asthma, No emphysema and No wheezing Gastro Gastrointestinal: Yes abdominal pain, No nausea or vomiting, No diarrhea, Yes constipation, No blood in stool, No acid reflux, No hemorrhoids, No ulcers, No gallbladder problem and No black,tarry stools Everette Hematologic: No blood thinners, No blood disorders, No bleeding, No anemia and No blood clots Neuro Neurologic: No system reviewed and no additional complaints, except as documented, No as per HPI, No abnormal gait, No abnormal hearing, No abnormal movements, No abnormal speech, No behavioral changes, No burning sensations, No confusion, No convulsions, No disequilibrium, No dizziness, No localized weakness, No frequent falls, No headache(s), No lack of coordination, No loss of vision, No memory loss, Yes numbness, No other visual disturbances, No radicular pain, No restless legs, No sensory deficit, No syncope, Yes tingling, No tremor(s), No weakness and No other Exam Const General: cooperative and healthy appearing Resp Effort & Inspection: normal respiratory effort Auscultation: no rales, no rhonchi and wheezes right lower Cardio Rate: regular rate Rhythm: regular rhythm Heart Sounds: S1 normal and S2 normal GI Inspection: normal to inspection, non-distended and no scars Palpation: soft and hernia indirect inguinal on the left (Patient with bulging abdominal contents through internal ring by exam; reducible) Assessment and Plan Assessment and Plan (1) Left inguinal hernia: Status: Acute Comment: This is a 61-year-old male with a chronic left inguinal hernia that has become increasingly symptomatic. He is currently in a alcohol rehab program but is 60 days sober. He is hoping to have his hernia addressed before he plans to return to work as a [employer] school professional. He believes the 6 weeks that I have requested for postoperative recovery will work well with his plan to return. Additionally, he is working to stop smoking and is down to 1 to 2 cigarettes/day. I have asked him to work towards complete cessation prior to his operation and advised him that this was going to increase his risk for both postoperative infection as well as retard wound healing (particularly with the use of mesh as planned). He expresses understanding and willingness to comply. Plan - Dr. Raymond Hyatt MD: Open left inguinal hernia repair with mesh (Alexander type) normal endotracheal anesthetic. I have examined the patient the following changes are noted: Patient continues to have some some bulging in the left lower quadrant that is easily reducible. He states it is only hard when he is nearing a bowel movement. He also confirms that he has nearly quit smoking. He states that he will have an occasional cigarette, but states that he took seriously my request to undergo smoking cessation at our last visit. He states that he initially had a lot of coughing following this attempt but has been much better. He also denies any new rashes or skin infections. On exam, his left inguinal hernia is palpable but soft and the remainder of the abdominal exam is benign. Plan to proceed with an open left inguinal hernia repair with mesh. Postoperative restrictions were reviewed and the patient agrees to keep to these restrictions as he allows the site to heal.
[2021-11-11] MEDS: Lactated Ringers 1,000 ML 15 ML IV (10:23)
[2021-11-11] MEDS: Bupivacaine 0.25% 30 ML Vial (12:39)
--- NOTE | 2021-11-11 15:27 | PCM.OPRPT ---
Report of Operation Date of Procedure: 11/11/21 Pre-Operative Diagnosis: Left inguinal hernia Post-Operative Diagnosis: 1. Left sliding inguinal hernia containing colon 2. Left direct inguinal hernia Surgeon: Raymond Hyatt chemical engineering intern: Alisha Cobos Type of Anesthesia: General/Supplemental Anesthesiologist: Werner Dave Estimated Blood Loss (mL): 50 Description of Procedure: After appropriate identification in the preoperative holding area, our patient was brought to the operating room. Preoperative antibiotics had been completely instilled prior to arrival to the operating room. The patient was then positioned supine on the operating room table. General anesthesia was induced. The patient's abdomen/inguinal region was prepped and draped in usual sterile fashion. A formal timeout was conducted to confirm both patient and procedure. Procedure was begun with a local block of the angle inguinal nerve just inferior to the notch of the anterior superior iliac spine. An oblique incision was made along the presumed location of the inguinal canal. This incision was deepened through the subcutaneous layer with electrocautery. We then encountered the fibers of the external oblique aponeurosis. A second block of the ilioinguinal nerve was made just beneath this layer with additional local anesthetic. Then the aponeurosis was opened in the direction of its fibers with care to avoid any injury to the underlying cord structures. The external ring was sharply opened medially. The 2 cut edges of the external oblique were clamped and the cord structures were encircled with a Sola drain. It became quickly evident that the patient had abundant chronic scarring of the structures to the inner portion of the inguinal canal. I then stripped away the cremaster fibers and identified the indirect hernia sac. A cord dissection followed to remove this sac from the underlying cord. There was also evidence of a cord lipoma besides. It became apparent that it would be most advantageous to open the hernia sac to define rest of the anatomy. Once opened, I identified a small section of the sigmoid colon representing a sliding component to this indirect hernia. This, too was scarred into the inside of the hernia sac and care was taken to avoid any inadvertent injury to the bowel as it was dissected off the underside of the hernia sac. Then a sponge stick was placed to reduce these components back into the peritoneum and a pursestring was performed of the indirect hernia sac near its emergence from the peritoneum. Once this pursestring was tied, the redundant hernia sac was amputated with cautery. Attention was then turned to removal of the cord lipoma. I followed the areolar plane between the cord and its cord lipoma back to the internal ring and the cord lipoma was amputated at its base after placement of a ligature to control any bleeding. I then examined the floor of the inguinal canal a little more closely and found evidence of a small direct hernia weakness. Superior to the cord there was a layer of muscle that had become adherent to the top side of the cord structures that was gently teased away. This appeared to represent transversus abdominis muscle. With this freed, we were in position for placement of our mesh. A Bard, preshaped Prolene, keyhole mesh was selected. This mesh was first tacked to the periosteum of the pubic tubercle medially. Then tacking sutures with 0 Ethibond were used to approximate the inferior edge of the mesh along the inguinal ligament. Superiorly, the mesh was tacked to the conjoined tendon. Lastly the tails were placed in approximation around the cord such that the opening accommodated the tip of a pinky finger. The distal ends of the details were then tucked beneath the external oblique upon neurosis which was closed in running fashion using a 3-0 Vicryl stitch. Another 3-0 Vicryl stitch was used to close Viridiana's in a running fashion. Lastly several tacking deep dermal stitches were placed to approximate wound edges. Then a 4-0 Monocryl was used to close the skin with a running subcuticular technique. Dermabond was applied as a dressing. Additional block was made at the anterior superior iliac spine given the patient's inability to have narcotic pain medication postop. He was extubated without event and transferred to PACU for ongoing recovery. Admit VTE Documentation VTE Present on Admission: Yes VTE Mechan Device Prophylaxis: SCD's
--- NOTE | 2021-11-11 16:05 | SUR.PHASEI ---
4x4 placed over incision, secured with medipore tape.
--- NOTE | 2021-11-11 16:07 | EX.PCM.DISCH ---
Discharge Instructions Diet Discharge Diet: No restrictions Activity Discharge Activity: May Shower Ice area for (Minutes): 20 Lifting Restrictions: No lifting greater than 10 pounds for 6 weeks after surgery Dressing / Incision Call your doctor if your incision/area has: Continuous Slow Oozing and Sudden Increased Bleeding Call your doctor if you observe: Fever of 101 or Higher and Inability to urinate Cleanse incision/area with: Soap & Water Follow Up Care Please Follow Up With: Raymond Hyatt MD When: 7-10 days postop Test Results: Test results from this visit will be discussed in further detail at your follow-up appointment, if applicable. Discharge Plan Admission Primary Reason for Your Visit: Left inguinal hernia repair Attending Provider: Raymond Hyatt Primary Care Provider: Lauren Vail Instructions Patient Instructions: Hernia Repair Open Dc, Hernia Repair Surgery Discharge Orders/Prescriptions Prescriptions: Continued albuterol sulfate 90 mcg/actuation HFA aerosol inhaler 2 puff inhalation Q6H PRN (Reason: COPD) RF: 0 budesonide-formoterol [Symbicort] 160-4.5 mcg/actuation HFA aerosol inhaler 2 puff inhalation BID Qty: 10.2 RF: 1 nicotine 21-14-7 mg/24 hr patch, TD daily, sequential 1 patch transdermal QDAY Qty: 70 RF: 0 acetaminophen [Tylenol Arthritis Pain] 650 mg tablet extended release 650 mg PO Q8H PRN (Reason: pain) Qty: 90 RF: 0 ibuprofen 200 mg Tablet 400 mg PO Q6H PRN (Reason: Pain) RF: 0 Referrals / Follow Up: Lauren Vail MD [Primary Care Provider] - Disposition Disposition (needs filled in before D/C Order can be placed): Home, Self Care
== END 2021-11-11 17:45 | disposition home or self-care (01) ==
LOC: SDC 09:22 → AC 09:23
PROVIDERS: PCP Internal Medicine; Referring Provider Surgery; Visit Provider Surgery
PROC: (CPT 49525; principal; 2021-11-11 11:15)
DX: K40.90 Unilateral inguinal hernia, without obstruction or gangrene, not specified as recurrent (principal); J44.9 Chronic obstructive pulmonary disease, unspecified; E11.9 Type 2 diabetes mellitus without complications; Z79.899 Other long term (current) drug therapy; F17.210 Nicotine dependence, cigarettes, uncomplicated; D17.6 Benign lipomatous neoplasm of spermatic cord
CPT/HCPCS: 00830; 49525; 88302; J7120; C1781; J2405

== ENCOUNTER 2022-07-07 12:46 | Emergency (ER) | payer MEDICAID, SELFPAY ==
[2022-07-07 12:47] VITALS: BP 126/78; PULSE 103; RESP 17; TEMP 36.8; O2SAT 97; BMI 28.4
--- NOTE | 2022-07-07 14:27 | EKG12_ITS ---
Test Reason : SHORT OF BREATH Blood Pressure : / mmHG Vent. Rate : 076 BPM Atrial Rate : 076 BPM P-R Int : 154 ms QRS Dur : 088 ms QT Int : 360 ms P-R-T Axes : 074 067 061 degrees QTc Int : 405 ms Normal sinus rhythm with sinus arrhythmia Normal ECG Confirmed by KIKE FAIRBANKS, MONICA ([id number]), television news video editor JOHN SHEA ([id number]) on 07/09/2022 10:06:32 AM Referred By: MACO Confirmed By:MONICA STOKES MD
--- NOTE | 2022-07-07 14:29 | EX.ED.DYSGE1 ---
HPI History of Present Illness Chief Complaint: Shortness of Breath Informant: patient Onset/Context/Timing Onset: Days (4 days) Context: Gradual Onset Current Severity: Moderate Maximum Severity: Moderate Narrative Narrative: Patient presents secondary to cough and shortness of breath. He does feel as he is if he is wheezing. He feels warm but has not measured a temperature when checked. He does have chills. He reports body aches and headache. He had some mild diarrhea this morning. [facility] Medical History Alcohol abuse Alcohol use Anxiety Arthritis Back pain Blackout BPH (benign prostatic hyperplasia) Chronic cough Colon cancer screening COPD (chronic obstructive pulmonary disease) COVID Diabetes History of diverticulitis History of edema Hypertension Left inguinal hernia Left knee pain Lower GI bleed Non-traumatic mid back pain Osteoarthritis of left knee Preventative health care Shortness of breath on exertion Smoker Vasovagal syncope Wears glasses Home Medications acetaminophen 650 mg tablet,extended release (Tylenol Arthritis Pain) 650 mg PO Q8H PRN pain #90 tabs 08/14/21 [Rx Last Taken Unknown] albuterol sulfate 90 mcg/actuation aerosol inhaler 2 puff inhalation Q6H PRN COPD 08/14/21 [History Last Taken Unknown] budesonide-formoterol HFA 160 mcg-4.5 mcg/actuation aerosol inhaler (Symbicort) 2 puff inhalation BID #10.2 grams 08/14/21 [Rx Last Taken Unknown] nicotine 21mg/24hr-14mg/24hr-7mg/24hr daily transderm patches,sequentl 1 patch transdermal QDAY #70 patches 08/14/21 [Rx Last Taken Unknown] ibuprofen 200 mg tablet 400 mg PO Q6H PRN Pain 11/11/21 [History Last Taken Unknown] nirmatrelvir 300 mg (150 mg x2)-ritonavir 100 mg tablet,dose pack(EUA) (Paxlovid) See Rx Instructions PO .COMPLEX #30 tabs 07/07/22 [Rx Last Taken Unknown] prednisone 20 mg tablet 40 mg PO DAILY #8 tabs 07/07/22 [Rx Last Taken Unknown] Allergy/AdvReac Type Severity Reaction Status Date / Time No Known Allergies Allergy Verified 07/07/22 12:46 Family History Mother Cancer Lymphoma Thyroid disorder Father Cancer pancreatic cancer Diabetes Surgical History History of hip replacement History of total right hip arthroplasty Hx of skin graft Social History Smoking Status: Former smoker alcohol intake: current substance use type: does not use ROS ROS ED Constitutional Constitutional ED: Reports chills, fever(s) and subjective Eyes Eyes: Denies change in vision or discharge from eye(s) ENT ENT ED: Denies discharge from eye(s), rhinorrhea or sore throat Cardiovascular Cardiovascular: Denies chest pain or palpitations Respiratory/Chest Respiratory/Chest: Reports cough, dyspnea and other Details: Wheezing Gastrointestinal Gastrointestinal: Reports diarrhea; Denies abdominal pain, nausea or vomiting Genitourinary Genitourinary ED: Denies difficulty urinating or dysuria Musculoskeletal Musculoskeletal: Reports myalgias; Denies back pain or extremity pain Integumentary Denies Abrasions or rash Neurologic Neurologic: Reports headache(s) and weakness Psychiatric Psychiatric: Denies anxiety or depression Allergic/Immunologic Allergic/Immunologic ED: Denies lip swelling or urticaria EXAM Physical Exam Const Vital Signs: 07/07/22 12:47 07/07/22 14:52 07/07/22 14:59 Temperature 98.3 F Temperature Source Temporal Pulse Rate 103 H 89 Respiratory Rate 17 19 H Respiratory Effort Normal Non-Labored Respiratory Depth Normal Respiratory Pattern Normal Blood Pressure 126/78 H 134/91 H Blood Pressure Mean 94 105 Pulse Ox 97 99 Oxygen Delivery Method Room Air Room Air 07/07/22 15:00 Temperature Temperature Source Pulse Rate 81 Respiratory Rate 18 Respiratory Effort Respiratory Depth Respiratory Pattern Normal Blood Pressure Blood Pressure Mean Pulse Ox Oxygen Delivery Method Positive well nourished and well developed General Appearance ED: well developed HEENT Reports normocephalic and head/scalp atraumatic Eyes PERRL and EOMs intact bilaterally Neck supple Chest Wall inspection of chest normal and palpation of chest normal Resp normal respiratory effort Resp Narrative: Expiratory wheezes throughout. Cardio regular rate and regular rhythm GI non-tender Auscultation: hypoactive bowel sounds Palpation: soft Extremity normal to inspection Neuro oriented x3 and no sensory deficits noted Sensorium / Orientation: alert Motor Exam: strength 5/5 throughout Psych mental status grossly normal Skin no rashes or lesions noted MDM MDM MDM Narrative Medical decision making narrative: COVID and influenza swab obtained. Lab work, EKG, chest x-ray ordered. Patient given prednisone as well as aerosols. Lab Data Attestation: I reviewed the patient's lab results. Labs: Laboratory Results - last 24 hr 07/07/22 07/07/22 14:45 14:45 WBC 4.2 L RBC 4.49 L Hgb 13.5 Hct 39.6 L MCV 88.2 MCH 30.1 MCHC 34.1 RDW Std Deviation 40.7 RDW Coeff of Jose 12.4 Plt Count 246 MPV 9.5 Immature Gran % (Auto) 0.200 Neut % (Auto) 73.4 H Lymph % (Auto) 13.2 L Bulloch % (Auto) 12.5 H Eos % (Auto) 0.2 Baso % (Auto) 0.5 Absolute Neuts (auto) 3.1 Absolute Lymphs (auto) 0.56 L Nucleated RBC % 0 Differential Comment COMMENT Diff Path Review May foll Sodium 138 Potassium 4.0 Chloride 105 Carbon Dioxide 28.0 Anion Gap 5 BUN 12 Creatinine 1.02 Estim Creat Clear Calc 84.53 Est GFR (MDRD) Af Amer 96 Est GFR (MDRD) Non-Af 79 BUN/Creatinine Ratio 11.8 Glucose 91 Calcium 8.7 Radiography Chest X-Ray - ED: 1 View, Read by ED Physician, Chronic Changes and No Infiltrates Diagnostic Testing: Clinical Impression(s) from Imaging Studies Chest X-Ray 07/07/22 15:24 IMPRESSION: Bilateral hilar prominence would recommend clinical correlation. No radiographic evidence of acute cardiopulmonary disease. Electronically Signed: Marvin Schaefer MD at 15:40 EDT Reading Location ID and State: [facility] / [place] Tel , Service support , EKG Initial EKG: Attestation: I personally reviewed and interpreted this EKG as follows: Interpretation: Sinus Rhythm (Sinus at 76 with no acute ischemia.) Treatment and Re-Evaluation Narrative: On repeat evaluation patient is resting more comfortably. Lungs are clear to auscultation. CBC significant for white count of 4.2. Chemistry studies unremarkable. Chest x-ray per my interpretation reveals no focal infiltrate. Radiology interpretation is also reviewed. Patient does have underlying COPD. He does qualify for Paxil of it as he presents on day 4 of symptoms. I will write this prescription for him and send it to our pharmacy at the hospital. I will also write him for prednisone and hand him that prescription as he states he has no money with him today and is not sure which pharmacy he wants to go to. Return instructions provided. Discharge Plan Triage Chief Complaint: Shortness of Breath ED Provider: Miranda Barajas Dx/Rx/DC Orders Clinical Impression: COVID-19, COPD (chronic obstructive pulmonary disease) Instructions: Coronavirus Disease 2019 (COVID-19): Overview, Coronavirus Disease 2019 (COVID-19): Caring for Yourself or Others Prescriptions: New Paxlovid (EUA) 300 mg (150 mg x 2)-100 mg tablets,dose pack See Rx Instructions .ROUTE .COMPLEX Qty: 30 0RF Rx Instructions: take TWO 150 mg tablets of nirmatrelvir with ONE 100 mg tablet of ritonavir twice daily for 5 days prednisone 20 mg tablet 40 mg PO DAILY Qty: 8 0RF No Action albuterol sulfate 90 mcg/actuation HFA aerosol inhaler 2 puff inhalation Q6H PRN (Reason: COPD) budesonide-formoterol [Symbicort] 160-4.5 mcg/actuation HFA aerosol inhaler 2 puff inhalation BID Qty: 10.2 1RF nicotine 21-14-7 mg/24 hr patch, TD daily, sequential 1 patch transdermal QDAY Qty: 70 0RF Rx Instructions: Apply 21 mg patch daily 6 weeks, then 14 mg patch daily 2 weeks, then 7 mg patch daily 2 weeks. acetaminophen [Tylenol Arthritis Pain] 650 mg tablet extended release 650 mg PO Q8H PRN (Reason: pain) Qty: 90 0RF ibuprofen 200 mg Tablet 400 mg PO Q6H PRN (Reason: Pain) Primary Care Provider: Lauren Vail Referrals: Lauren Vail MD [Primary Care Provider] - 1-2 Weeks Disposition Disposition: Home, Self Care
[2022-07-07] MEDS: 0.9% Normal Saline 1,000 ML 150 ML IV (14:45)
[2022-07-07] MEDS: MethylPREDNISolone 125 MG/2 ML Vial IV (14:45)
[2022-07-07 14:53] LABS: Absolute Lymphocyte Count 0.56 X10^3/uL (0.83-4.51); Absolute Neutrophil Count 3.1 X10^3/uL (2.0-7.7); Basophil# 0.02 X10^3/uL; Basophil% 0.5 % (0-1); Eosinophil# 0.01 X10^3/uL; Eosinophils% 0.2 % (0-5); Hematocrit 39.6 % (40-54); Hemoglobin 13.5 g/dL (13.0-16.5); Lymphocyte # 0.56 X10^3/ul (0.83-4.51); Lymphocyte % 13.2 % (19-41); Mean Corp Hgb Conc 34.1 g/dL (32-36); Mean Corpuscular Hgb 30.1 pg (27.0-32.0); Mean Corpuscular Volume 88.2 fL (80-94); Mean Platelet Vol. 9.5 fl (6.2-12.0); Monocyte# 0.53 X10^3/uL; Monocyte% 12.5 % (0-10); NRBC Flagged by Analyzer 0 % (0-5); Neutrophil # 3.11 X10^3/uL (2.7-7.7); Neutrophil % 73.4 % (47-70); POSITIVE DIFFERENTIAL YES; Platelet Count 246 K/mm3 (150-450); RBC Distribution Width CV 12.4 % (11.6-14.6); RBC Distribution Width SD 40.7 fl (35.1-43.9); Red Blood Count 4.49 M/mm3 (4.6-6.2); White Blood Count 4.2 K/mm3 (4.4-11.0)
[2022-07-07] MEDS: Albuterol 2.5 MG/3 ML VIAL.NEB. INHALATION ×2 (14:56)
[2022-07-07] MEDS: Ipratropium/Albuterol Sulfate 3 ML AMPUL.NEB INHALATION (14:56)
[2022-07-07 14:59] VITALS: BP 134/91; PULSE 89; RESP 19; O2SAT 99
[2022-07-07 15:00] VITALS: PULSE 81; RESP 18
[2022-07-07 15:02] LABS: Differential Indicated SCAN CRITERIA MET
[2022-07-07 15:07] LABS: Anion Gap 5 (5-15); BUN 12 mg/dL (7-18); BUN/Creat Ratio 11.8 RATIO (10-20); Calcium,Total 8.7 mg/dL (8.5-10.1); Chloride 105 mmol/L (98-107); Creatinine, Serum 1.02 mg/dL (0.70-1.30); EST Glomerular Filtration Rate 79 mL/min (>60); Est Glom Filt Rate - Afr Amer 96 mL/min (>60); Estimated Creatinine Clearance 84.53 ml/min; Glucose 91 mg/dL (74-106); Sodium Level 138 mmol/L (136-145)
[2022-07-07 15:20] LABS: Pathologist Review May foll
--- NOTE | 2022-07-07 15:24 | RAD_ITS ---
INDICATION: sob EXAMINATION/TECHNIQUE: X-RAY - XR Chest 1 View COMPARISON: None. FINDINGS: LINES/DEVICES: None. LUNGS: Bilateral hilar prominence and opacification is seen. A linear streaky opacities visualized in the left lower lung field suggestive of a subsegmental atelectatic streaks. Otherwise no evidence of consolidations. The costophrenic angles are clear bilaterally with no evidence of pleural effusions. No consolidation, edema or effusion. No pneumothorax. MEDIASTINUM AND CARDIOVASCULAR STRUCTURES: Cardiac silhouette not enlarged. Central airways and mediastinal contour are unremarkable. BONES AND SOFT TISSUES: Degenerative bone changes are seen.. RAD/Chest 1 View (Portable) IMPRESSION: Bilateral hilar prominence would recommend clinical correlation. No radiographic evidence of acute cardiopulmonary disease. Electronically Signed: Marvin Schaefer MD at 15:40 EDT ,
[2022-07-07 16:04] VITALS: BP 132/77; PULSE 92; RESP 18; O2SAT 99
== END 2022-07-07 16:05 | disposition home or self-care (01) ==
PROVIDERS: Emergency Provider Emergency Medicine; PCP Internal Medicine; Visit Provider Emergency Medicine
DX: U07.1 COVID-19 (principal); J44.9 Chronic obstructive pulmonary disease, unspecified; E11.9 Type 2 diabetes mellitus without complications; I10 Essential (primary) hypertension; M17.12 Unilateral primary osteoarthritis, left knee; Z79.52 Long term (current) use of systemic steroids; Z79.51 Long term (current) use of inhaled steroids; Z87.891 Personal history of nicotine dependence
CPT/HCPCS: 71045; 80048; 85025; 87428; 93005; 94640; 96361; 96374; 99285; J7030; A4216

== ENCOUNTER → 2025-03-19 | Outpatient (CLI) | payer BC, SELFPAY ==
[2025-03-19 13:34] LABS: Erythrocyte Sedimentation Rate 11 mm/hr (0-20)
[2025-03-19 13:35] LABS: Absolute Lymphocyte Count 1.88 X10^3/uL (0.83-4.51); Absolute Neutrophil Count 5.3 X10^3/uL (2.0-7.7); Basophil# 0.03 X10^3/uL; Basophil% 0.4 % (0-1); Eosinophil# 0.04 X10^3/uL; Eosinophils% 0.5 % (0-5); Hematocrit 44.4 % (40-54); Lymphocyte # 1.88 X10^3/ul (0.83-4.51); Lymphocyte % 24.9 % (19-41); Mean Corp Hgb Conc 33.8 g/dL (32-36); Mean Corpuscular Hgb 28.7 pg (27.0-32.0); Mean Corpuscular Volume 84.9 fL (80-94); Mean Platelet Vol. 10.1 fl (6.2-12.0); Monocyte# 0.31 X10^3/uL; Monocyte% 4.1 % (0-10); NRBC Flagged by Analyzer 0 % (0-5); Neutrophil # 5.25 X10^3/uL (2.7-7.7); Neutrophil % 69.7 % (47-70); Platelet Count 354 K/mm3 (150-450); RBC Distribution Width CV 12.7 % (11.6-14.6); RBC Distribution Width SD 39.4 fl (35.1-43.9); Red Blood Count 5.23 M/mm3 (4.6-6.2); White Blood Count 7.5 K/mm3 (4.4-11.0)
[2025-03-19 15:00] LABS: ALB/GLOB Ratio 1.6 RATIO (0.9-2.4); AST(SGOT) 23 U/L (<=37); Alanine Aminotransfer ALT/SGPT 21 U/L (<=46); Albumin, Serum 4.5 g/dL (3.4-4.8); Alkaline Phosphatase 77 U/L (40-129); Anion Gap 14 (5-15); BUN 15 mg/dL (4-19); BUN/Creat Ratio 16.6 RATIO (10-20); Calcium,Total 9.4 mg/dL (7.6-11.0); Carbon Dioxide 23.1 mmol/L (21.0-32.0); Chloride 103 mmol/L (98-108); Cholesterol 175 mg/dL (<=200); Creatinine, Serum 0.87 mg/dL (0.70-1.20); EST Glomerular Filtration Rate 97 (>60); Globulin 2.9 g/dL (2.2-4.2); Glucose 89 mg/dL (70-99); High Density Lipoprotein 44 mg/dL; Low Density Lipoprotein Calc. 113 mg/dL; PSA,Total- Diagnostic 6.75 ng/mL (0.00-4.00); Potassium 4.5 mmol/L (3.3-5.1); Protein, Total 7.3 g/dL (5.9-8.4); Sodium Level 140 mmol/L (133-145); Total Bilirubin 0.26 mg/dL (0.00-1.30); Triglycerides 93 mg/dL; Very Low Density Lipoprotein 19 mg/dL (5-40); cholesterol:hdl ratio screen 3.97
[2025-03-19 15:03] LABS: CRP 3.05 mg/L (0.0-3.0); Rheumatoid Factor < 10.0 IU/mL (<15)
[2025-03-20 10:08] LABS: ANTINUCLEAR ANTIBODIES DIRECT Negative (Negative)
[2025-03-20 15:08] LABS: CCP IgG Antibodies 6 units (0-19)
== END | disposition home or self-care (01) ==
LOC: BFHLAB 11:06
PROVIDERS: PCP Nurse Practitioner Family; Visit Provider Nurse Practitioner Family
DX: Z00.01 Encounter for general adult medical examination with abnormal findings (principal); M25.50 Pain in unspecified joint
CPT/HCPCS: 36415; 80053; 80061; 84153; 85025; 85652; 86038; 86140; 86200; 86431

== ENCOUNTER → 2025-05-07 | Outpatient (CLI) | payer BC, SELFPAY ==
--- NOTE | 2025-05-07 08:35 | EKG12_ITS ---
Test Reason : PRE OP Blood Pressure : */* mmHG Vent. Rate : 77 BPM Atrial Rate : 77 BPM P-R Int : 158 ms QRS Dur : 86 ms QT Int : 364 ms P-R-T Axes : 77 70 79 degrees QTcB Int : 411 ms Sinus rhythm with marked sinus arrhythmia Otherwise normal ECG Confirmed by KIKE FAIRBANKS, MONICA ([id number]), subeditor JOHN SHEA ([id number]) on 05/08/2025 8:23:38 AM Referred By: Travis Mcdnaiel Confirmed By: MONICA STOKES MD
== END | disposition home or self-care (01) ==
LOC: PSN 08:34
PROVIDERS: PCP Nurse Practitioner Family; Referring Provider Specialist; Visit Provider Specialist
DX: Z01.818 Encounter for other preprocedural examination (principal); Z01.810 Encounter for preprocedural cardiovascular examination; M17.12 Unilateral primary osteoarthritis, left knee; M21.062 Valgus deformity, not elsewhere classified, left knee
CPT/HCPCS: 93005

== ENCOUNTER → 2025-05-10 | Outpatient (CLI) | payer BC, SELFPAY ==
--- OUTSIDE RECORDS SUMMARY | 2025-05-10 09:37 | XMS RPT_ITS | CCD ---
Author Organization [facility] Care Team Providers Care Writing Tutor Name Role Phone Travis Mcdaniel Attending Unavailable Travis Mcdaniel Referring Unavailable Kathy Sandy Primary Care Unavailable Travis Mcdaniel Attending Unavailable Travis Mcdaniel Referring Unavailable Du, Kathy Primary Care Unavailable Travis Mdcaniel Attending Unavailable Travis Mcdaniel Referring Unavailable Du, Kathy Primary Care Unavailable Du, Kathy Primary Care Unavailable Kathy Sandy Attending Unavailable Medications Current Medications Medication Drug Class(es) Dates Sig (Normalized) Sig (Original) 8 hr acetaminophen 650 mg extended release oral tablet (1 source) Start: 08-14-2021 take 1 tablet by mouth every eight hours Acetaminophen (Tylenol Arthritis Pain) 650 mg tablet extended release Active 650 MG PO Q8H 90 August 14, 2021 12:00am [id number] 200 actuat albuterol 0.09 mg/actuat metered dose inhaler (1 source) beta2-Adrenergic Agonist Start: 08-14-2021 take 1 puff(s) by inhalation every six hours Albuterol Sulfate Active 2 PUFF INHALATION EVERY 6 HOURS August 14, 2021 12:00am Budesonide-Formoter ol (1 source) Corticosteroid, beta2-Adrenergic Agonist Start: 08-14-2021 take 1 puff(s) by inhalation twice daily Budesonide-Formoter ol (Symbicort) 160-4.5 mcg/actuation HFA aerosol inhaler Active 2 PUFF INHALATION TWICE A DAY 10.2 August 14, 2021 12:00am ibuprofen 200 mg oral tablet (1 source) Nonsteroidal Anti-inflammatory Drug Start: 11-11-2021 take 400 mg by mouth every six hours Ibuprofen Active 400 MG PO EVERY 6 HOURS November 11, 2021 1:00am Nicotine (1 source) Cholinergic Nicotinic Agonist Start: 08-14-2021 apply 21 mg transdermal route once daily, then apply 14 mg transdermal route once daily, then apply 7 mg transdermal route once daily Nicotine Active 1 PATCH TD daily August 14, 2021 12:00am Apply 21 mg patch daily 6 weeks, then 14 mg patch daily 2 weeks, then 7 mg patch daily 2 weeks. Nirmatrelvir-Ritona vir (1 source) Start: 07-07-2022 Nirmatrelvir-Ritona vir (Paxlovid (Eua)) 300 mg (150 mg x 2)-100 mg tablets,dose pack Active 0 PO .COMPLEX July 07, 2022 12:00am take TWO 150 mg tablets of nirmatrelvir with ONE 100 mg tablet of ritonavir twice daily for 5 days predniSONE 20 mg oral tablet (1 source) Start: 07-07-2022 take 40 mg by mouth once daily Prednisone Active 40 MG PO DAILY July 07, 2022 12:00am Completed/Discontinued Medications Medication Drug Class(es) Dates Sig (Normalized) Sig (Original) acetaminophen 250 mg / aspirin 250 mg / caffeine 65 mg oral tablet (1 source) Platelet Aggregation Inhibitor, Nonsteroidal Anti-inflammatory Drug, Central Nervous System Stimulant, Methylxanthine Start: 09-01-2014 End: 09-04-2014 Aspirin/Acetaminoph en/Caffeine (Excedrin Extra Strength Caplet) 1 EACH tablet Discontinued 1 EACH PO NEEDED September 01, 2014 12:00am September 04, 2014 4:57pm acetaminophen 325 mg / HYDROcodone bitartrate 5 mg oral tablet (1 source) Opioid Agonist Start: 04-22-2021 End: 06-18-2021 take 1 tablet by mouth every four hours as needed Hydrocodone-Acetami nophen Discontinued 1 TABLET PO EVERY 4 HOURS NEEDED 03 02April 22, 2021 June 18, 2021 12:24pm cyclobenzaprine hydrochloride 10 mg oral tablet (1 source) Muscle Relaxant Start: 04-22-2021 End: 06-18-2021 take 10 mg by mouth three times daily Cyclobenzaprine Discontinued 10 MG PO THREE TIMES A DAY April 22, 2021 12:00am June 18, 2021 12:23pm Fluticasone Propion-Salmeterol (1 source) Corticosteroid, beta2-Adrenergic Agonist Start: 08-14-2021 End: 08-14-2021 take 1 puff(s) by inhalation twice daily Fluticasone Propion-Salmeterol (Advair Hfa) 45-21 mcg/actuation HFA aerosol inhaler Discontinued 2 PUFF INHALATION TWICE A DAY August 14, 2021 12:00am August 14, 2021 9:57am naproxen 500 mg oral tablet (2 sources) Nonsteroidal Anti-inflammatory Drug Start: 04-22-2021 End: 06-18-2021 take 500 mg by mouth twice daily Naproxen Discontinued 500 MG PO TWICE A DAY June 15, 2021 9:28am June 18, 2021 12:27pm oxyCODONE hydrochloride 30 mg oral tablet (1 source) Opioid Agonist Start: 10-10-2014 End: 10-12-2014 take 15 mg by mouth every six hours as needed Oxycodone Discontinued 15 MG PO EVERY 6 HOURS NEEDED October 10, 2014 1:00am October 12, 2014 8:31am Problems Active Problems Problem Classification Problem Date Documented Da te Episodic/Chronic Abdominal hernia (1 source) Left inguinal hernia ; Translations: [Unilateral inguinal hernia, without obstruction or gangrene, not specified as recurrent] Episodic Alcohol-related disorders (2 sources) Alcohol abuse; Translations: [Alcohol abuse, uncomplicated] Chronic Chronic obstructive pulmonary disease and bronchiectasis (2 sources) Chronic obstructive lung disease; Translations: [Chronic obstructive pulmonary disease, unspecified] Chronic E Codes: Fall (1 source) Fall; Translations: [Unspecified fall, initial encounter] Episodic Essential hypertension (1 source) Hypertensive disorder; Translations: [Essential (primary) hypertension] Chronic Gastrointestinal hemorrhage (1 source) Lower gastrointestinal hemorrhage; Translations: [Gastrointestinal hemorrhage, unspecified] Episodic Hyperplasia of prostate (1 source) Benign prostatic hyperplasia; Translations: [Benign prostatic hyperplasia without lower urinary tract symptoms] Chronic Osteoarthritis (3 sources) Arthritis; Translations: [Unspecified osteoarthritis, unspecified site] Onset: Chronic Other fractures (1 source) Fracture of rib; Translations: [Fracture of one rib, unspecified side, initial encounter for closed fracture] Episodic Other non-traumatic joint disorders (1 source) Pain in left knee; Translations: [Left knee pain] Episodic Other screening for suspected conditions (not mental disorders or infectious disease) (1 source) Patient encounter status; Translations: [Encounter for screening for malignant neoplasm of colon] Episodic Skull and face fractures (1 source) Closed fracture of nasal bones; Translations: [Fracture of nasal bones, initial encounter for closed fracture] Episodic Spondylosis; intervertebral disc disorders; other back problems (2 sources) Backache; Translations: [Dorsalgia, unspecified] Episodic Syncope (1 source) Vasovagal syncope; Translations: [Syncope and collapse] Episodic Viral infection (1 source) Disease caused by 2019-nCoV; Translations: [COVID-19] Episodic Past or Other Problems Problem Classification Problem Date Documented Da te Episodic/Chronic Unclassified (1 source) Readiness finding; Translations: [Desire for detoxification] Results Test Name Value Interpretation Reference Range Facil ity 12 Lead EKGon 05-07-2025 12 Lead EKG [facility] Cardi[facility] Services [address] [place] [address] 12 Lead EKG 05/07/25 0842 MR#: [id number] Acct: [id number] Name: ELIZABETH WILKES Rep #: [id number] : 1960 64 From: Pieter Stokes MD Attending Dr: Dr. Travis Mcdaniel MD Status: REG CLI Ordering Dr: Travis Mcdaniel MD Date: 05/07/25 Location: [facility] Sex: M C Admitted: Test Reason : PRE OP Blood Pressure : */* mmHG Vent. Rate : 77 BPM Atrial Rate : 77 BPM P-R Int : 158 ms QRS Dur : 86 ms QT Int : 364 ms P-R-T Axes : 77 70 79 degrees QTcB Int : 411 ms Sinus rhythm with marked sinus arrhythmia Otherwise normal ECG Confirmed by PIETER STOKES MD ([id number]), editor sound JOHN SHEA ([id number]) on 05/08/2025 8:23:38 AM Referred By: Travis Mcdaniel Confirmed By: PIETER STOKES MD 05/08/25 0823 Date Pieter Stokes MD CC: [employer] TEACHER-C Kathy Sandy; Dr. Travis Mcdaniel MD Signed Normal [facility] ANTINUCLEAR ANTIBODIES DIREC Ton 03-20-2025 MICHELE,DIRECT Negative Normal Negative [facility] Comment on above: Result Comment: Perf ormed at: [facility] [employer] [id number] [employer] Mill Manager: Artemio Ontiveros PhD, Phone: [phone] Performed By: #### L 500.4050, L505.7010, L500.4100, L3100.5475, L101.9900, L501.9940, L4600.0100, L501.6710, L100.0100 #### [facility] [address] [place], [place], [id number] CCP IgG Antibodieson 025 CCP IgG Ab. 6 units Normal 0-19 [facility] Comment on above: Result Comment: Nega tive <20 Weak positive 20 - 39 Moderate positive 40 - 59 Strong positive >59 Performed at: [facility] [employer] [id number] [employer] Mill Manager: Artemio Ontiveros PhD, Phone: [phone] Performed By: #### L 500.4050, L505.7010, L500.4100, L3100.5475, L101.9900, L501.9940, L4600.0100, L501.6710, L100.0100 #### [facility] [address] [place], [place], [id number] CBC W/Diff, Automatedon 02-21 Absolute Lymph 1.88 X10 3/uL Normal 0.83-4.51 [facility] Comment on above: Performed By: #### L 500.4050, L505.7010, L500.4100, L3100.5475, L101.9900, L501.9940, L4600.0100, L501.6710, L100.0100 #### [facility] [address] [place], [place], [id number] [phone] Absolute Neut 5.3 X10 3/uL Normal 2.0-7.7 [facility] Comment on above: Performed By: #### L 500.4050, L505.7010, L500.4100, L3100.5475, L101.9900, L501.9940, L4600.0100, L501.6710, L100.0100 #### [facility] [address] [place], [address] Basophils/100 WBC (Bld) 0.4 % Normal 0-1 [facility] Comment on above: Performed By: #### L 500.4050, L505.7010, L500.4100, L3100.5475, L101.9900, L501.9940, L4600.0100, L501.6710, L100.0100 #### [facility] [address] [facility] [place], [address] Eosinophils/100 WBC (Bld) 0.5 % Normal 0-5 [facility] Comment on above: Performed By: #### L 500.4050, L505.7010, L500.4100, L3100.5475, L101.9900, L501.9940, L4600.0100, L501.6710, L100.0100 #### [facility] [address] [facility] [place], [address] Erythrocyte distribution width (RBC) [Ratio] 12.7 % Normal 11.6-14.6 [facility] Comment on above: Performed By: #### L 500.4050, L505.7010, L500.4100, L3100.5475, L101.9900, L501.9940, L4600.0100, L501.6710, L100.0100 #### [facility] [address] [facility] [place], [address] Hematocrit (Bld) [Volume fraction] 44.4 % Normal 40-54 [facility] Comment on above: Performed By: #### L 500.4050, L505.7010, L500.4100, L3100.5475, L101.9900, L501.9940, L4600.0100, L501.6710, L100.0100 #### [facility] [address] [place], [address] Hemoglobin (Bld) [Mass/Vol] 15.0 g/dL Normal 13.0-16.5 [facility] Comment on above: Performed By: #### L 500.4050, L505.7010, L500.4100, L3100.5475, L101.9900, L501.9940, L4600.0100, L501.6710, L100.0100 #### [facility] [address] [place], [address] IG% 0.400 Normal 0.0-0.9 [facility] Comment on above: Result Comment: IG% - Immature Granulocytes (promyelocytes, myelocytes and metamyelocytes) > 1% indicates that a LEFT SHIFT is Present. Performed By: #### L 500.4050, L505.7010, L500.4100, L3100.5475, L101.9900, L501.9940, L4600.0100, L501.6710, L100.0100 #### [facility] [address] [place], [address] Lymphocytes/100 WBC (Bld) 24.9 % Normal 19-41 [facility] Comment on above: Performed By: #### L 500.4050, L505.7010, L500.4100, L3100.5475, L101.9900, L501.9940, L4600.0100, L501.6710, L100.0100 #### [facility] [address] [place], [address] MCH (RBC) [Entitic mass] 28.7 pg Normal 27.0-32.0 [facility] Comment on above: Performed By: #### L 500.4050, L505.7010, L500.4100, L3100.5475, L101.9900, L501.9940, L4600.0100, L501.6710, L100.0100 #### [facility] [address] [place], [address] MCHC (RBC) [Mass/Vol] 33.8 g/dL Normal 32-36 [facility] Comment on above: Performed By: #### L 500.4050, L505.7010, L500.4100, L3100.5475, L101.9900, L501.9940, L4600.0100, L501.6710, L100.0100 #### [facility] [address] [place], [address] MCV (RBC) [Entitic vol] 84.9 fL Normal 80-94 [facility] Comment on above: Performed By: #### L 500.4050, L505.7010, L500.4100, L3100.5475, L101.9900, L501.9940, L4600.0100, L501.6710, L100.0100 #### [facility] [address] [place], [address] Monocytes/100 WBC (Bld) 4.1 % Normal 0-10 [facility] Comment on above: Performed By: #### L 500.4050, L505.7010, L500.4100, L3100.5475, L101.9900, L501.9940, L4600.0100, L501.6710, L100.0100 #### [facility] [address] [place], [address] Neutrophils/100 WBC (Bld) 69.7 % Normal 47-70 [facility] Comment on above: Performed By: #### L 500.4050, L505.7010, L500.4100, L3100.5475, L101.9900, L501.9940, L4600.0100, L501.6710, L100.0100 #### [facility] [address] [place], [address] ( Nucleated RBC (Bld) [#/Vol] 0 10*3/uL Normal 0-5 [facility] Comment on above: Performed By: #### L 500.4050, L505.7010, L500.4100, L3100.5475, L101.9900, L501.9940, L4600.0100, L501.6710, L100.0100 #### [facility] [address] [place], [address] (822) Platelet mean volume (Bld) [Entitic vol] 10.1 fL Normal 6.2-12.0 [facility] Comment on above: Performed By: #### L 500.4050, L505.7010, L500.4100, L3100.5475, L101.9900, L501.9940, L4600.0100, L501.6710, L100.0100 #### [facility] [address] [place], [address] (694) Platelets (Bld) [#/Vol] 354 10*3/uL Normal 150-450 [facility] Comment on above: Performed By: #### L 500.4050, L505.7010, L500.4100, L3100.5475, L101.9900, L501.9940, L4600.0100, L501.6710, L100.0100 #### [facility] [address] [facility] [place], [place], [id number] RBC (Bld) [#/Vol] 5.23 10*6/uL Normal 4.6-6.2 [facility] Comment on above: Performed By: #### L 500.4050, L505.7010, L500.4100, L3100.5475, L101.9900, L501.9940, L4600.0100, L501.6710, L100.0100 #### [facility] [address] [place], [place], [id number] RDW SD 39.4 fl Normal 35.1-43.9 [facility] Comment on above: Performed By: #### L 500.4050, L505.7010, L500.4100, L3100.5475, L101.9900, L501.9940, L4600.0100, L501.6710, L100.0100 #### [facility] [address] [place], [address] WBC (Bld) [#/Vol] 7.5 10*3/uL Normal 4.4-11.0 [facility] Comment on above: Performed By: #### L 500.4050, L505.7010, L500.4100, L3100.5475, L101.9900, L501.9940, L4600.0100, L501.6710, L100.0100 #### [facility] [address] [facility] [place], [address] CRPon 03-19-2025 C-REACTIVE PROT 3.05 mg/L High 0.0-3.0 [facility] Comment on above: Performed By: #### L 500.4050, L505.7010, L500.4100, L3100.5475, L101.9900, L501.9940, L4600.0100, L501.6710, L100.0100 #### [facility] [address] [facility] [place], [address] Comprehensive Metabolic Prof ilon 03-19-2025 GFR/1.73 sq M.predicted among non-blacks MDRD (S/P/Bld) [Vol rate/Area] 97 mL/min/{1.73_m2} Normal >60 [facility] Comment on above: Result Comment: mL/m in/1.73m2 CKD-EPI Creatinine Equation (2020) Performed By: #### L 500.4050, L505.7010, L500.4100, L3100.5475, L101.9900, L501.9940, L4600.0100, L501.6710, L100.0100 #### [facility] [address] [place], [address] Erythrocyte Sed Rateon 03-19 SED RATE 11 mm/hr Normal 0-20 [facility] Comment on above: Performed By: #### L 500.4050, L505.7010, L500.4100, L3100.5475, L101.9900, L501.9940, L4600.0100, L501.6710, L100.0100 #### [facility] [address] [place], [address] Lipid Profileon 03-19-2025 Cholesterol in LDL [Mass/Vol] 113 mg/dL Normal [facility] Comment on above: Result Comment: Bord yvafoa=483-207 mg/dL Higher Gbak=356 mg/dL or greater Performed By: #### L 500.4050, L505.7010, L500.4100, L3100.5475, L101.9900, L501.9940, L4600.0100, L501.6710, L100.0100 #### [facility] [address] [place], [address] PSA,Total- Diagnosticon 02-21 PSA, DIAGNOSTIC 6.75 ng/mL High 0.00-4.00 [facility] Comment on above: Result Comment: This test was performed using the [employer] tPSA method. Measured values of a patient??sample can vary depending on the testing procedure used. PSA values determined on patient samples by different testing procedures cannot be used interchangeably. If there is a change in PSA assays while monitoring therapy, sequential testing should be performed to confirm baseline values. Performed By: #### L 500.4050, L505.7010, L500.4100, L3100.5475, L101.9900, L501.9940, L4600.0100, L501.6710, L100.0100 #### [facility] [address] [place], [place], [address] Rheumatoid Factoron 03-19-20 25 RHEUMATOID FAC < 10.0 Normal <15 [facility] Comment on above: Performed By: #### L 500.4050, L505.7010, L500.4100, L3100.5475, L101.9900, L501.9940, L4600.0100, L501.6710, L100.0100 #### [facility] [address] [place], [place], [id number] [phone] Absolute lymphocyte counton 07-07-2022 Lymphocytes Auto (Unsp spec) [#/Vol] 0.56 10*3/uL 0.83-4.51 [facility] Work Phone: Basophil percentageon 2021 Basophils/100 WBC (Bld) 0.5 % 0-1 [facility] Work Phone: Chloride [Moles/Vol] 105 mmol/L 98-107 [facility] Work Phone: Eosinophils/100 WBC (Bld) 0.2 % 0-5 [facility] Work Phone: Glucose [Mass/Vol] 91 mg/dL 74-106 [facility] Work Phone: Neutrophils (Bld) [#/Vol] 3.1 10*3/uL 2.0-7.7 [facility] Work Phone: Neutrophils/100 WBC (Bld) 73.4 % 47-70 [facility] Work Phone: Potassium [Moles/Vol] 4.0 mmol/L 3.5-5.1 [facility] Work Phone: Sodium [Moles/Vol] 138 mmol/L 136-145 [facility] Work Phone: WBC (Bld) [#/Vol] 4.2 10*3/uL 4.4-11.0 [facility] Work Phone: Blood erythrocytes count (nu mber/volume)on 07-07-2022 RBC (Bld) [#/Vol] 4.49 10*6/uL 4.6-6.2 [facility] Work Phone: Blood hemoglobin measurement (mass/volume)on 07-07-2022 Hemoglobin (Bld) [Mass/Vol] 13.5 g/dL 13.0-16.5 [facility] Work Phone: Blood lymphocytes/100 leukoc yteson 07-07-2022 Lymphocytes/100 WBC (Bld) 13.2 % 19-41 [facility] Work Phone: Blood manual differential co mment interpretation (narrative result)on 07-07-2022 Manual differential comment Lopez (Bld) [Interp] COMMENT [facility] Work Phone: Comment on above: LYMPHOPENIA. Blood monocytes/100 leukocyt eson 07-07-2022 Monocytes/100 WBC (Bld) 12.5 % 0-10 [facility] Work Phone: Blood platelet mean volumeon 07-07-2022 Platelet mean volume (Bld) [Entitic vol] 9.5 fL 6.2-12.0 [facility] Work Phone: Determination of erythrocyte mean corpuscular volume (MCV)on 07-07-2022 MCV (RBC) [Entitic vol] 88.2 fL 80-94 [facility] Work Phone: Hematocrit Auto (Bld) [Volum e fraction]on 07-07-2022 Hematocrit (Bld) [Volume fraction] 39.6 % 40-54 [facility] Work Phone: Laboratory - Chemistry and C hemistry - challengeon 07-07-2022 CO2 [Moles/Vol] 28.0 mmol/L 21.0-32.0 [facility] Work Phone: Urea nitrogen/Creatinine [Mass ratio] 11.8 mg/mg 10-20 [facility] Work Phone: Laboratory - Hematology and Cell countson 07-07-2022 Erythrocyte distribution width (RBC) [Entitic vol] 40.7 fL 35.1-43.9 [facility] Work Phone: Erythrocyte distribution width (RBC) [Ratio] 12.4 % 11.6-14.6 [facility] Work Phone: Immature granulocytes/100 WBC (Bld) 0.200 % 0.0-0.9 [facility] Work Phone: Comment on above: IG% - Immature Granu locytes (promyelocytes, myelocytes and metamyelocytes) > 1% indicates that a LEFT SHIFT is Present. MCH (RBC) [Entitic mass] 30.1 pg 27.0-32.0 [facility] Work Phone: Nucleated RBC/100 WBC (Bld) [Ratio] 0 % 0-5 [facility] Work Phone: MCHC Auto (RBC) [Mass/Vol]on 07-07-2022 MCHC (RBC) [Mass/Vol] 34.1 g/dL 32-36 [facility] Work Phone: No Panel Informationon 07-07 Estimated Creatinine Clearance Calc 84.53 ml/min [facility] Work Phone: Estimated GFR (MDRD) Amer 96 mL/min >60 [facility] Work Phone: Comment on above: GFR Calc Estimated GFR (MDRD) Non-Af Amer 79 mL/min >60 [facility] Work Phone: Comment on above: Non- GFR Calc Platelets bldon 07-07-2022 Platelets (Bld) [#/Vol] 246 10*3/uL 150-450 [facility] Work Phone: Review by pathologiston 06-22 Pathologist review Lopez (Unsp spec) [Interp] March martha [facility] Work Phone: Serum or plasma calcium kymberly urement (mass/volume)on 07-07-2022 Calcium [Mass/Vol] 8.7 mg/dL 8.5-10.1 [facility] Work Phone: Serum or plasma creatinine m easurement (mass/volume)on 07-07-2022 Creatinine [Mass/Vol] 1.02 mg/dL 0.70-1.30 [facility] Work Phone: Comment on above: The validity of the calculated GFR & GFRAA in patients over 70 years has not been determined. Clinical correlation is essential. Serum or plasma urea nitroge n measurement (mass/volume)on 07-07-2022 Urea nitrogen [Mass/Vol] 12 mg/dL - [facility] Work Phone: Thin prep Papanicolaou smear with manual screeningon 07-07-2022 Thin prep Papanicolaou smear with manual screening 04-05 [facility] Work Phone: TSHon 07-20-2017 Thyroid stimulating hormone (TSH) 3.150 mcIU/mL Normal 0.360-3.740 [facility] ([place] Comment on above: Result Comment: Nick jay note ? as of 06/05/17 new pediatric reference intervals were added for this test. Performed By: #### T SH ####[place] [address] UAon 07-20-2017 UA Appear Hazy Abnormal Clear [facility] ([place] Comment on above: Performed By: #### U A, UAMIC ####[place] [address] UA Blood Negative Normal Neg-Trace [facility] ([place] Comment on above: Performed By: #### U A, UAMIC ####[place] [address] UA Leuk Est Negative Normal Negative [facility] ([place] Comment on above: Performed By: #### U A, UAMIC ####[place] [address] UA Nitrite Negative Normal Negative [facility] [place] Comment on above: Performed By: #### U A, UAMIC ####[place] [address] UA pH 6.0 Normal 5.0 - 8.0 [facility] ([place] Comment on above: Performed By: #### U A, UAMIC ####[place] [address] UA Protein Negative Normal Negative [facility] ([place] Comment on above: Performed By: #### U A, UAMIC ####[place] [address] UA Spec Grav 1.020 Normal 1.006-1.029 [facility] ([place]) Comment on above: Performed By: #### U A, UAMIC ####[place] [address] UA Specimen Type Void Normal [facility] ([place] Comment on above: Performed By: #### U A, UAMIC ####[place] [address] UA Urobilinogen 0.2 E.U./dL Normal 0.2-1.0 [facility] [place] Comment on above: Performed By: #### U A, UAMIC ####[place] [address] Urine, color Yellow Normal [facility] ([place] Comment on above: Performed By: #### U A, UAMIC ####[place] [address] Urine, glucose Negative Normal Negative [facility] [place] Comment on above: Performed By: #### U A, UAMIC ####[place] [address] Urine, ketones presence Negative Normal Neg-Trace [facility] ([place] Comment on above: Performed By: #### U A, UAMIC ####[place] [address] Urine, urobilinogen Negative Normal Neg-Trace [facility] ([place] Comment on above: Performed By: #### U A, UAMIC ####[place] [address] UAMICon 07-20-2017 UA Squam Epithelial Rare Normal 0-20 [facility] ([place]) Comment on above: Performed By: #### U A, UAMIC ####Jerry [id number] [place] [id number] UA WBC Rare Normal 0-5 [facility] ([place]) Comment on above: Performed By: #### U A, UAMIC ####[facility] [place] [id number] Urine, erythrocytes Rare Normal 0-2 [facility] ([place]) Comment on above: Performed By: #### U A, UAMIC ####[facility] [place] [id number] No Panel Information SARS-CoV-2 & FLU Antigen (Rapid) SARS-CoV-2 (COVID 19) [facility] Work Phone: Vital Signs Date Time Vital Sign Value Performing Clinician Ruthy ghosh 07-07-2022 16:04-0400 Diastolic blood pressure 77 mm[Hg] [facility] Work Phone: 07-07-2022 16:04-0400 Heart rate 92 /min [facility] Work Phone: 07-07-2022 16:04-0400 Respiratory rate 18 /min [facility] Work Phone: 07-07-2022 16:04-0400 SaO2% (BldA) [Mass fraction] 99 % [facility] Work Phone: 07-07-2022 16:04-0400 Systolic blood pressure 132 mm[Hg] [facility] Work Phone: 07-07-2022 12:47-0400 Body height 182.88 cm [facility] Work Phone: 07-07-2022 12:47-0400 Body mass index (BMI) [Ratio] 28.4 kg/m2 [facility] Work Phone: 07-07-2022 12:47-0400 Body temperature 98.3 [degF] [facility] Work Phone: 07-07-2022 12:47-0400 Body weight 95.2 kg [facility] Work Phone: Encounters Encounter Date Encounter Type Care Provider Facility Start: 05-19-2025 ambulatory Travis Mcdaniel Facility: [facility] Start: 05-09-2025 ambulatory Travis Mcdaniel Facility: [facility] Start: 05-08-2025 Encounter for prepro cedural laboratory examination Travischandan Mcdaniel [facility] Start: 05-07-2025 Encounter for prepro cedural cardiovascular examination Travis Mcdaniel [facility] Start: 05-07-2025 ambulatory Travis Mcdaniel Facility: [facility] Start: 03-22-2025 Encounter for genera l adult medical examination with abnormal findings Kathy Sandy [facility] Start: 03-19-2025 End: 03-19-2025 ambulatory [facility] Facility:[facility] Start: 07-07-2022 End: 07-07-2022 Emergency department patient visit [facility] Start: 09-24-2021 Patient encounter status [facility] Work Phone: Procedures Date Procedure Procedure Detail Performing Clinician Start: 07-07-2022 Plain chest X-ray SARS-CoV-2 & FLU Ant igen (Rapid) Plan of Treatment Date Care Activity Detail Author Start: 07-07-2022 [facility] Work Phone: Patient Education Coronavirus Di sease 2019 (COVID-19): Overview Coronavirus Disease 2019 (COVID-19): Caring for Yourself or Others [facility] Work Phone: Patient referral [facility] Work Phone: Payers Date Payer Category Payer Self-pay [id number] 2025 Unknown [id number] Unknown SELF PAY INSURANCE [id number] Unknown SELF PAY INSURANCE [id number] Unknown [id number] Unknown [id number] Unknown [id number] Unknown [id number] Social History Date Type Detail Facility Start: 07-07-2022 Tobacco smoking status NHIS Unknown if ever smoked [facility] Work Phone: Start: 09-01-2014 Occasional [facility] Work Phone: Start: 09-01-2014 None [facility] Work Phone: Start: 09-01-2014 Spouse/ Signif icant Other [facility] Work Phone: Start: 1960 Sex Assigned At Male [facility] Work Phone: Medical Equipment Procedure Code Equipment Code Equipment Origin al Text Equipment Identifier Dates Repair, hernia, inguinal, with mesh insertion ([id number]) Extra-gynaecologic al surgical mesh, synthetic polymer, non-bioabsorbable ([id number] [facility] Start: 11-11-2021 Evaluation note Note Date & Type Note Facility Evaluation note No assessment information availa ble [facility] Work Phone: Summary Purpose Family History No Family History Records Found Relationship Condition Age at Onset Recorded Date/T daniel mother Malignant neoplasm Unknown Disorder of thyroid Unknown father Malignant neoplasm Unknown Diabetes mellitus Unknown Advance Directives No Advanced Directives Records Found Advance Directive Response Recorded Date/ Time Advance Directives No September 10:49am Living Will No July 07 2:52pm Power of Aeronautics Teacher No July 07 022 2:52pm Chief Complaint and Reason for Visit Chief Complaint sob Additional Source Comments (unrecognized sect ion and content) No Status Records FoundNo Status Records Found INFORMATION SOURCE (unrecogn ized section and content) DATE CREATED AUTHOR 05/18/2018 [facility] ([place]) DATE CREATED AUTHOR AUTHOR'S ORGANIZ ATION 05/08/2025 [facility] Goals (unrecognized section and content) Goals may be documented in a n alternate section FOR RECORDS PERTAINING TO PATIENTS WHO ARE OR HAVE BEEN ENROLLED IN A CHEMICAL DEPENDENCY/SUBSTANCEABUSE PROGRAM, SOME INFORMATION MAY BE OMITTED. This clinical summary was aggregated from multiple sources. Caution should be exercised in using it in the provision of clinical care. This summary normalizes information from multiple sources, and as a consequence, information in this document may materially change the coding, format and clinical context of patient data. In addition, data may be omitted in some cases. CLINICAL DECISIONS SHOULD BE BASED ON THE PRIMARY CLINICAL RECORDS. [facility]. provides no warranty or guarantee of the accuracy or completeness of information in this document.
[2025-05-10 10:25] LABS: Absolute Lymphocyte Count 2.53 X10^3/uL (0.83-4.51); Absolute Neutrophil Count 3.1 X10^3/uL (2.0-7.7); Basophil# 0.03 X10^3/uL; Basophil% 0.5 % (0-1); Eosinophil# 0.13 X10^3/uL; Eosinophils% 2.1 % (0-5); Hematocrit 40.8 % (40-54); Hemoglobin 14.5 g/dL (13.0-16.5); Lymphocyte # 2.53 X10^3/ul (0.83-4.51); Lymphocyte % 40.4 % (19-41); Mean Corp Hgb Conc 35.5 g/dL (32-36); Mean Corpuscular Hgb 30.9 pg (27.0-32.0); Mean Platelet Vol. 10.6 fl (6.2-12.0); Monocyte# 0.45 X10^3/uL; Monocyte% 7.2 % (0-10); NRBC Flagged by Analyzer 0 % (0-5); Neutrophil % 49.5 % (47-70); Platelet Count 346 K/mm3 (150-450); RBC Distribution Width CV 13.3 % (11.6-14.6); RBC Distribution Width SD 41.9 fl (35.1-43.9); Red Blood Count 4.69 M/mm3 (4.6-6.2); White Blood Count 6.3 K/mm3 (4.4-11.0)
[2025-05-10 11:24] LABS: Albumin, Serum 4.6 g/dL (3.4-4.8); Anion Gap 11 (5-15); BUN 17 mg/dL (4-19); BUN/Creat Ratio 19.8 RATIO (10-20); Calcium,Total 9.5 mg/dL (7.6-11.0); Carbon Dioxide 23.8 mmol/L (21.0-32.0); Chloride 103 mmol/L (98-108); Creatinine, Serum 0.84 mg/dL (0.70-1.20); EST Glomerular Filtration Rate 98 (>60); Glucose 92 mg/dL (70-99); Potassium 4.2 mmol/L (3.3-5.1); Sodium Level 138 mmol/L (133-145)
== END | disposition home or self-care (01) ==
LOC: LAB 09:07
PROVIDERS: PCP Nurse Practitioner Family; Referring Provider Specialist; Visit Provider Specialist
DX: Z01.812 Encounter for preprocedural laboratory examination (principal)
CPT/HCPCS: 36415; 80048; 82040; 85025

== ENCOUNTER 2025-05-28 06:46 | Day surgery (SDC) | payer BC, SELFPAY ==
[2025-05-28] VITALS (8 sets, daily range): BP systolic 100–144; BP diastolic 64–90; PULSE 60–78; RESP 16–20; TEMP 36–36.8; O2SAT 95–99; BMI 29.7
--- NOTE | 2025-05-28 07:28 | PCM.PRE.AN2 ---
ASA Classification* ASA Classification ASA Classification: 3 Assessment & Plan Anesthesia* Anesthesia Assessment Anesthesia Assessment: Discussed sedation and/or anesthesia options, risks, benefits, and alternatives with patient/parents/legal guardian/POA. Questions invited. The patient/parents/legal guardian/POA seems to understand and agrees to proceed with anesthesia plan. Reviewed the physical assessment, medical history, allergy history and patient home medications list prior to surgery/procedure/anesthetic and documented any changes. Performed airway and anesthesia risk assessments. Anesthesia Type Anesthesia Type: Spinal and Block Anesthesia Focused Assessment* Airway Assessment Mouth opens: >3 cm Mallampati Score: II Labs Anesthesia Preop lab: CBC WBC 6.3 K/mm3 (4.4-11.0) 05/10/25 09:11 05/10/25 RBC 4.69 M/mm3 (4.6-6.2) 05/10/25 09:11 05/10/25 Hgb 14.5 g/dL (13.0-16.5) 05/10/25 09:11 05/10/25 Hct 40.8 % (40-54) 05/10/25 09:11 05/10/25 Plt Count 346 K/mm3 (150-450) 05/10/25 09:11 05/10/25 CHEMISTRY Potassium 4.2 mmol/L (3.3-5.1) 05/10/25 09:11 05/10/25 Sodium 138 mmol/L (133-145) 05/10/25 09:11 05/10/25 Phosphorus 3.7 mg/dL (2.5-4.9) 06/16/21 05:25 06/16/21 BUN 17 mg/dL (4-19) 05/10/25 09:11 05/10/25 Creatinine 0.84 mg/dL (0.70-1.20) 05/10/25 09:11 05/10/25 Glucose 92 mg/dL (70-99) 05/10/25 09:11 05/10/25 COAG PT 14.0 SECONDS (11.7-14.9) 09/01/14 20:40 09/01/14 Pre-Assessment Diagnosis/Proposed Procedure Planned Operative Procedure(s): LEFT TOTAL KNEE Anesthesia History Anesthesia History - leave specialist: Anesthesia History - leave specialist Hx Hospitalization No 05/24/25 13:38 Any Problems With Anesthesia No 05/24/25 13:38 Cholinesterase deficiency No 05/24/25 13:38 You/Your Family Experience No 05/24/25 13:38 fever (hyperthermia) with Relationship Recent Exposure to Contagious No 11/11/21 10:04 Disease Does patient have nerve No 05/24/25 13:38 stimulator Patient instructed to have device shut off --Does patient have Pacemaker or ICD? When Was Last Pacemaker Check QUESTION #4 FULL TEXT: You/Your Family Experience fever (hyperthermia) with Anesthesia Last Oral Intake Last Oral intake: Last Oral Intake NPO since Meds taken in AM with sips of water? Meds patient instructed to take am of surgery PONV PONV - leave specialist: PONV - leave specialist Female No 05/24/25 13:38 HX of Motion Sickness No 05/24/25 13:38 HX of N/V After Surgery No 05/24/25 13:38 Non-Smoker No 05/24/25 13:38 Duration of Surgery greater Yes 05/24/25 13:38 than 60 minutes Number of Risk Factors 1 05/24/25 13:38 PONV Score Low Risk 05/24/25 13:38 Height & Weight Height & Weight: Anesthesia: Height & Weight Height 6 ft 07/07/22 12:47 Respiratory Assessment Respiratory Assessment - leave specialist: Respiratory Tract Infection Hx - leave specialist Hx Respiratory Tract Infection No 05/24/25 13:38 STOP Sleep Apnea STOP Sleep Apnea - leave specialist: STOP Sleep Apnea - leave specialist Hx Hypertension No 05/24/25 13:38 Hx Sleep Apnea No 05/24/25 13:38 CPAP No 11/11/21 15:42 BIPAP No 11/07/21 14:16 Do you snore loudly (louder Yes 05/24/25 13:38 than talking or can be heard Do you often feel tired/ No 05/24/25 13:38 fatigued/ sleepy during daytime? Has anyone observed you stop No 05/24/25 13:38 breathing during sleep? STOP Results Negative 05/24/25 13:38 QUESTION #5 FULL TEXT : Do you snore loudly (louder than talking or can be heard through closed doors)? 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 Specify any problems Hx of Preganancy in last 3 N/A 05/24/25 13:38 Months Nurse Filling Out Transfusion [facility] 05/24/25 13:38 & Questions: Date: 05/24/25 05/24/25 13:38 Time: 13:54 05/24/25 13:38 Patient unable to answer at this time (ie. confused, unrespo /Reproduction History /Reproductive History - leave specialist: /Reproductive Hx- leave specialist Hx Now No 05/24/25 13:38 Gestational Age (in weeks): EDC: Hx Hx Para Hx Section SAB No 05/24/25 13:38 Active Medications Active Medications: Current Medications Generic Name Dose Route Start Last Admin Trade Name Freq PRN Reason Stop Dose Admin Acetaminophen 1,000 mg 05/28/25 14:00 Acetaminophen 500 Mg Tablet PO Q8 RO Cefazolin Sodium 1 gm in 50 mls @ 100 mls/hr 05/28/25 07:14 IV 05/28/25 07:43 X1 ONE Ketorolac Tromethamine 30 mg 05/28/25 07:14 Ketorolac 30 Mg/Ml Syringe IV 06/02/25 07:15 X1 PRN Pain Score 4-10 Morphine Sulfate 2 - 4 mg 05/28/25 07:14 Morphine 2 Mg/Ml Syringe IV Q2H PRN PRN Pain Score 6-10 Ondansetron HCl 4 mg 05/28/25 07:14 Ondansetron 4 Mg/2 Ml Vial IV Q8H PRN PRN NAUSEA Oxycodone HCl 5 - 10 mg 05/28/25 07:14 Oxycodone 5 Mg Tablet PO Q4H PRN PRN Pain Score 4-10 Promethazine HCl 12.5 mg 05/28/25 07:14 Promethazine 25 Mg/Ml Syringe IM Q6H PRN PRN NAUSEA/VOMITING PFSH Medical History History of diverticulitis Leg cramps COVID BPH (benign prostatic hyperplasia) Colon cancer screening Preventative health care Hypertension Left knee pain Wears glasses Arthritis Blackout History of diverticulitis Smoker Shortness of breath on exertion Chronic cough History of edema Alcohol abuse COPD (chronic obstructive pulmonary disease) Left inguinal hernia Osteoarthritis of left knee Alcohol use Anxiety Diabetes Back pain Non-traumatic mid back pain Vasovagal syncope Lower GI bleed Home Medications ?Medication ?Instructions ?Recorded ?Last Taken ?Type acetaminophen 650 mg 650 mg PO Q8H PRN pain #90 tabs 08/14/21 Unknown Rx tablet,extended release (Tylenol Arthritis Pain) albuterol sulfate 90 mcg/actuation 2 puff inhalation Q6H PRN COPD 08/14/21 Unknown History aerosol inhaler budesonide-formoterol HFA 160 2 puff inhalation BID #10.2 grams 08/14/21 Unknown Rx mcg-4.5 mcg/actuation aerosol inhaler (Symbicort) ibuprofen 200 mg tablet 400 mg PO Q6H PRN Pain 11/11/21 Unknown History Allergy/AdvReac Type Severity Reaction Status Date / Time No Known Allergies Allergy Verified 05/24/25 13:35 Family History Mother Cancer Lymphoma Thyroid disorder Father Cancer pancreatic cancer Diabetes Surgical History Hx of skin graft History of total right hip arthroplasty History of hip replacement Social History Smoking Status: Current every day smoker tobacco type: cigarettes alcohol intake: current substance use type: does not use Review of Systems (Anesthesia) ROS Narrative System reviewed and no additional complaints, except as documented.
--- NOTE | 2025-05-28 07:28 | PCM.PRE.AN2 ---
ASA Classification* ASA Classification ASA Classification: 3 Assessment & Plan Anesthesia* Anesthesia Assessment Anesthesia Assessment: Discussed sedation and/or anesthesia options, risks, benefits, and alternatives with patient/parents/legal guardian/POA. Questions invited. The patient/parents/legal guardian/POA seems to understand and agrees to proceed with anesthesia plan. Reviewed the physical assessment, medical history, allergy history and patient home medications list prior to surgery/procedure/anesthetic and documented any changes. Performed airway and anesthesia risk assessments. Anesthesia Type Anesthesia Type: Spinal and Block Anesthesia Focused Assessment* Airway Assessment Mouth opens: >3 cm Mallampati Score: II Labs Anesthesia Preop lab: CBC WBC 6.3 K/mm3 (4.4-11.0) 05/10/25 09:11 05/10/25 RBC 4.69 M/mm3 (4.6-6.2) 05/10/25 09:11 05/10/25 Hgb 14.5 g/dL (13.0-16.5) 05/10/25 09:11 05/10/25 Hct 40.8 % (40-54) 05/10/25 09:11 05/10/25 Plt Count 346 K/mm3 (150-450) 05/10/25 09:11 05/10/25 CHEMISTRY Potassium 4.2 mmol/L (3.3-5.1) 05/10/25 09:11 05/10/25 Sodium 138 mmol/L (133-145) 05/10/25 09:11 05/10/25 Phosphorus 3.7 mg/dL (2.5-4.9) 06/16/21 05:25 06/16/21 BUN 17 mg/dL (4-19) 05/10/25 09:11 05/10/25 Creatinine 0.84 mg/dL (0.70-1.20) 05/10/25 09:11 05/10/25 Glucose 92 mg/dL (70-99) 05/10/25 09:11 05/10/25 COAG PT 14.0 SECONDS (11.7-14.9) 09/01/14 20:40 09/01/14 Pre-Assessment Diagnosis/Proposed Procedure Planned Operative Procedure(s): LEFT TOTAL KNEE Anesthesia History Anesthesia History - family engagement specialist: Anesthesia History - family engagement specialist Hx Hospitalization No 05/24/25 13:38 Any Problems With Anesthesia No 05/24/25 13:38 Cholinesterase deficiency No 05/24/25 13:38 You/Your Family Experience No 05/24/25 13:38 fever (hyperthermia) with Relationship Recent Exposure to Contagious No 11/11/21 10:04 Disease Does patient have nerve No 05/24/25 13:38 stimulator Patient instructed to have device shut off --Does patient have Pacemaker or ICD? When Was Last Pacemaker Check QUESTION #4 FULL TEXT: You/Your Family Experience fever (hyperthermia) with Anesthesia Last Oral Intake Last Oral intake: Last Oral Intake NPO since Meds taken in AM with sips of water? Meds patient instructed to take am of surgery PONV PONV - family engagement specialist: PONV - family engagement specialist Female No 05/24/25 13:38 HX of Motion Sickness No 05/24/25 13:38 HX of N/V After Surgery No 05/24/25 13:38 Non-Smoker No 05/24/25 13:38 Duration of Surgery greater Yes 05/24/25 13:38 than 60 minutes Number of Risk Factors 1 05/24/25 13:38 PONV Score Low Risk 05/24/25 13:38 Height & Weight Height & Weight: Anesthesia: Height & Weight Height 6 ft 07/07/22 12:47 Respiratory Assessment Respiratory Assessment - family engagement specialist: Respiratory Tract Infection Hx - family engagement specialist Hx Respiratory Tract Infection No 05/24/25 13:38 STOP Sleep Apnea STOP Sleep Apnea - family engagement specialist: STOP Sleep Apnea - family engagement specialist Hx Hypertension No 05/24/25 13:38 Hx Sleep Apnea No 05/24/25 13:38 CPAP No 11/11/21 15:42 BIPAP No 11/07/21 14:16 Do you snore loudly (louder Yes 05/24/25 13:38 than talking or can be heard Do you often feel tired/ No 05/24/25 13:38 fatigued/ sleepy during daytime? Has anyone observed you stop No 05/24/25 13:38 breathing during sleep? STOP Results Negative 05/24/25 13:38 QUESTION #5 FULL TEXT : Do you snore loudly (louder than talking or can be heard through closed doors)? 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 Specify any problems Hx of Preganancy in last 3 N/A 05/24/25 13:38 Months Nurse Filling Out Transfusion [facility] 05/24/25 13:38 & Questions: Date: 05/24/25 05/24/25 13:38 Time: 13:54 05/24/25 13:38 Patient unable to answer at this time (ie. confused, unrespo /Reproduction History /Reproductive History - family engagement specialist: /Reproductive Hx- family engagement specialist Hx Now No 05/24/25 13:38 Gestational Age (in weeks): EDC: Hx Hx Para Hx Section SAB No 05/24/25 13:38 Active Medications Active Medications: Current Medications Generic Name Dose Route Start Last Admin Trade Name Freq PRN Reason Stop Dose Admin Acetaminophen 1,000 mg 05/28/25 14:00 Acetaminophen 500 Mg Tablet PO Q8 RO Cefazolin Sodium 1 gm in 50 mls @ 100 mls/hr 05/28/25 07:14 IV 05/28/25 07:43 X1 ONE Ketorolac Tromethamine 30 mg 05/28/25 07:14 Ketorolac 30 Mg/Ml Syringe IV 06/02/25 07:15 X1 PRN Pain Score 4-10 Morphine Sulfate 2 - 4 mg 05/28/25 07:14 Morphine 2 Mg/Ml Syringe IV Q2H PRN PRN Pain Score 6-10 Ondansetron HCl 4 mg 05/28/25 07:14 Ondansetron 4 Mg/2 Ml Vial IV Q8H PRN PRN NAUSEA Oxycodone HCl 5 - 10 mg 05/28/25 07:14 Oxycodone 5 Mg Tablet PO Q4H PRN PRN Pain Score 4-10 Promethazine HCl 12.5 mg 05/28/25 07:14 Promethazine 25 Mg/Ml Syringe IM Q6H PRN PRN NAUSEA/VOMITING PFSH Medical History History of diverticulitis Leg cramps COVID BPH (benign prostatic hyperplasia) Colon cancer screening Preventative health care Hypertension Left knee pain Wears glasses Arthritis Blackout History of diverticulitis Smoker Shortness of breath on exertion Chronic cough History of edema Alcohol abuse COPD (chronic obstructive pulmonary disease) Left inguinal hernia Osteoarthritis of left knee Alcohol use Anxiety Diabetes Back pain Non-traumatic mid back pain Vasovagal syncope Lower GI bleed Home Medications ?Medication ?Instructions ?Recorded ?Last Taken ?Type acetaminophen 650 mg 650 mg PO Q8H PRN pain #90 tabs 08/14/21 Unknown Rx tablet,extended release (Tylenol Arthritis Pain) albuterol sulfate 90 mcg/actuation 2 puff inhalation Q6H PRN COPD 08/14/21 Unknown History aerosol inhaler budesonide-formoterol HFA 160 2 puff inhalation BID #10.2 grams 08/14/21 Unknown Rx mcg-4.5 mcg/actuation aerosol inhaler (Symbicort) ibuprofen 200 mg tablet 400 mg PO Q6H PRN Pain 11/11/21 Unknown History Allergy/AdvReac Type Severity Reaction Status Date / Time No Known Allergies Allergy Verified 05/24/25 13:35 Family History Mother Cancer Lymphoma Thyroid disorder Father Cancer pancreatic cancer Diabetes Surgical History Hx of skin graft History of total right hip arthroplasty History of hip replacement Social History Smoking Status: Current every day smoker tobacco type: cigarettes alcohol intake: current substance use type: does not use Review of Systems (Anesthesia) ROS Narrative System reviewed and no additional complaints, except as documented.
[2025-05-28] MEDS: LR 1,000 ML - BOLUS PREOP 999 ML IV (07:42)
[2025-05-28 08:31] LABS: Magnesium 2.1 mg/dL (1.5-2.2)
[2025-05-28] MEDS: Cefazolin 2 GM in 0.9% Normal Saline (100mL Bag) 100 ML IV (08:50)
[2025-05-28] MEDS: Magnesium 1 GM over 15 mins IV (09:00)
[2025-05-28] MEDS: TXA 1000mg in NS100 100ml (IVPB at Incision) 660 MG IV (09:10)
[2025-05-28] MEDS: TXA 1000mg in NS100 100ml (IVPB at Closure) 660 MG IV (10:08)
[2025-05-28] MEDS: JPS (Morphine 10mg/ml) OPERA.SITE (10:13)
--- NOTE | 2025-05-28 10:33 | OP.PCM_ITS ---
Operative Report (Standard) Operative Information Date of Procedure: 05/28/25 Pre-Operative Diagnosis: Left knee primary osteoarthritis with valgus alignment Post-Operative Diagnosis: Left knee primary osteoarthritis with valgus alignment Surgery/Procedure Performed: Left total knee arthroplasty drop crew laborer: Yes Supervisor Roller Printing: Taylor Dudley Tasks completed by first aid attendant: Closing and Retracting Additional safety admin assistant?: Yes Additional Outside Parts Salesman #2: Bhupinder Loja Tasks completed by safety admin assistant #2: Opening & closing, Implanting device and Retracting Type of Anesthesia: Spinal RN Documented Start/Stop Times: Operation Date: 05/28/25 09:00 Case Time Into Pre-Op 05/28/25 07:05 Anesthesia Start 05/28/25 09:00 Into Room 05/28/25 09:00 Procedure Start 05/28/25 09:26 Procedure Start Time: :26 Procedure Stop Time: 10:39 Select all DRAINS/GRAFTS/IMPLANTS that apply: Prosthetic device Prosthetic device details: see body of operative report Special Medications: 2 g Ancef, 1 g TXA at incision, 1 g TXA closure, 10 mg Decadron, joint cocktail (5 mg Duramorph, 30 mL of 0.5% Ropivicaine, 1000 units of epinephrine, 30 mg of Toradol) Estimated Blood Loss: 75 mL Fluids Replaced: 800 mL crystalloid Specimen collected: Yes Description of specimen(s) removed: Bony Description of surgery: Implants used: 1. [place] size 6 triathlon cruciate retaining distal femoral component 2. [place] size 7 universal tibial baseplate 3. Elaine X3 9 mm CS polyethylene Brief history operative indications: 64-year-old M with history of left knee osteoarthritis with radiographic findings with loss of joint space, osteophyte formation and subchondral sclerosis. Failed conservative measures as mentioned in the H&P. Discussion of total knee arthroplasty as well as risk and benefits were discussed the patient including but not limited to blood loss, DVTs, PEs, neurovascular damage, general risk of anesthesia including loss of life, and stiffness or instability were discussed with patient. Patient demonstrated understanding and was able to sign informed consent. Procedure: On the date of procedure patient's left lower extremity was marked in the preoperative area. The patient was then taken back to the operating room where the patient was placed on the table in the supine position. All bony prominences were identified a well-padded. Anesthesia assumed control of the C-spine and airway and remained controlled throughout the remainder of the procedure. A tourniquet was placed on the left upper thigh and the leg was prepped in a sterile fashion. The surgeon then scrubbed at this time .Upon reentering the room left lower extremity was draped in a standard orthopedic fashion. A timeout was then called and everyone agreed upon the side, the site, the procedure to be performed, patient's identity and antibiotics given. Esmarch bandage was used to exsanguinate the extremity and the tourniquet was placed up to 250 mmHg with the knee in flexion. A midline skin incision was made and sharp dissection was taken down through skin subcutaneous tissue and fat. The standard medial parapatellar incision was made and the patella was subluxed laterally. The standard deep MCL release was done and the fat pad was resected. Next our attention was directed to the femur. The entry reamer was used to enter the femoral canal. A flexible intramedullary guide was used and the distal femoral cutting block was pinned into place and 8mm of distal femur resection was completed. The knee was then placed in deep flexion in the standard [employer] sizing guide was used to place the femoral component in 3? external rotation based on the posterior condyles. A size 6 4-in-1 cutting block was selected and pinned into place. The anterior cut was then made and checked for notching. The subsequent anterior chamfer cuts, posterior condylar cuts and posterior chamfer cuts were made while ensuring the MCL and LCL were protected. Our attention was then turned to the tibia where the [employer] tibial cutting guide was used to make the appropriate tibial cut 90 degrees from the mechanical axis. A drop stephanie was then used to verify the cut. A size 7 tibial base plate was selected. the knee was flexed to 90 degrees and the soft tissues and posterior osteophytes were removed from the joint. 40 cc of the periarticular injection was injected into the posterior medial corner of the joint. The appropriate trials were then placed on the femur and tibia. A trial polyethylene was trialed to ensure proper balancing and stability of the knee. Patella tracking, was then verified and corrected appropriately as needed. The appropriate tibial internal rotation was then marked with a bovie. Our attention was then directed to the patella. Patella was inspected and cartilage found to be appropriate for retention patellar tracking was checked and deemed appropriate. Once we were happy lug holes were drilled for the femur and trial components were removed. the tibia was subluxed and pinned into place and the keel was punched and the canal was reamed. Final components were verified and opened. The wound was copiously irrigated with normal saline. When the implants were ready the components were impacted into place starting with the tibia, femur and finally the patella. The trial poly component was placed and the knee was placed in full extension. All excess cement was removed in the process. Once the cement had cured the tracking, alignment and balance were verified and a size 9 mm CS polyethylene component was placed. Once the final components were placed a 500 mL dilute Betadine 3 minute lavage was performed and the wound was copiously irrigated with normal saline solution and the periarticular injection was given. The wound was closed in a layer willis fashion using #1 vicryl interrupted sutures for the arthrotomy, 2-0 interrupted Vicryl suture for the subcuticular layer and stephanie for final skin closure. A sterile compressive dressing was then placed. The patient was then awakened from anesthesia, transferred to the [facility] and transferred to the PACU for recovery. Post op plan DVT ppx: 81 mg p.o. twice daily, thigh high compression stockings Follow up: in office in 2 weeks for wound check PT: to start POD #0 at hospital, outpatient PT should be arranged. Surgical Findings: Stable knee. Stage IV osteoarthritis Complications Complications: No Admit VTE Documentation VTE Present on Admission: No VTE Mechan Device Prophylaxis: SCD's and Thigh High NEDRA Hose VTE Pharm Prophylaxis ordered?: Yes
--- NOTE | 2025-05-28 10:33 | OP.PCM_ITS ---
Operative Report (Standard) Operative Information Date of Procedure: 05/28/25 Pre-Operative Diagnosis: Left knee primary osteoarthritis with valgus alignment Post-Operative Diagnosis: Left knee primary osteoarthritis with valgus alignment Surgery/Procedure Performed: Left total knee arthroplasty fish and game club manager: Yes Filter Worker: Taylor Dudley Tasks completed by director of first impressions: Closing and Retracting Additional executive assistant?: Yes Additional Magistrate Judge #2: Bhupinder Loja Tasks completed by executive assistant #2: Opening & closing, Implanting device and Retracting Type of Anesthesia: Spinal RN Documented Start/Stop Times: Operation Date: 05/28/25 09:00 Case Time Into Pre-Op 05/28/25 07:05 Anesthesia Start 05/28/25 09:00 Into Room 05/28/25 09:00 Procedure Start 05/28/25 09:26 Procedure Start Time: :26 Procedure Stop Time: 10:39 Select all DRAINS/GRAFTS/IMPLANTS that apply: Prosthetic device Prosthetic device details: see body of operative report Special Medications: 2 g Ancef, 1 g TXA at incision, 1 g TXA closure, 10 mg Decadron, joint cocktail (5 mg Duramorph, 30 mL of 0.5% Ropivicaine, 1000 units of epinephrine, 30 mg of Toradol) Estimated Blood Loss: 75 mL Fluids Replaced: 800 mL crystalloid Specimen collected: Yes Description of specimen(s) removed: Bony Description of surgery: Implants used: 1. [place] size 6 triathlon cruciate retaining distal femoral component 2. [place] size 7 universal tibial baseplate 3. Elaine X3 9 mm CS polyethylene Brief history operative indications: 64-year-old M with history of left knee osteoarthritis with radiographic findings with loss of joint space, osteophyte formation and subchondral sclerosis. Failed conservative measures as mentioned in the H&P. Discussion of total knee arthroplasty as well as risk and benefits were discussed the patient including but not limited to blood loss, DVTs, PEs, neurovascular damage, general risk of anesthesia including loss of life, and stiffness or instability were discussed with patient. Patient demonstrated understanding and was able to sign informed consent. Procedure: On the date of procedure patient's left lower extremity was marked in the preoperative area. The patient was then taken back to the operating room where the patient was placed on the table in the supine position. All bony prominences were identified a well-padded. Anesthesia assumed control of the C-spine and airway and remained controlled throughout the remainder of the procedure. A tourniquet was placed on the left upper thigh and the leg was prepped in a sterile fashion. The surgeon then scrubbed at this time .Upon reentering the room left lower extremity was draped in a standard orthopedic fashion. A timeout was then called and everyone agreed upon the side, the site, the procedure to be performed, patient's identity and antibiotics given. Esmarch bandage was used to exsanguinate the extremity and the tourniquet was placed up to 250 mmHg with the knee in flexion. A midline skin incision was made and sharp dissection was taken down through skin subcutaneous tissue and fat. The standard medial parapatellar incision was made and the patella was subluxed laterally. The standard deep MCL release was done and the fat pad was resected. Next our attention was directed to the femur. The entry reamer was used to enter the femoral canal. A flexible intramedullary guide was used and the distal femoral cutting block was pinned into place and 8mm of distal femur resection was completed. The knee was then placed in deep flexion in the standard [employer] sizing guide was used to place the femoral component in 3? external rotation based on the posterior condyles. A size 6 4-in-1 cutting block was selected and pinned into place. The anterior cut was then made and checked for notching. The subsequent anterior chamfer cuts, posterior condylar cuts and posterior chamfer cuts were made while ensuring the MCL and LCL were protected. Our attention was then turned to the tibia where the [employer] tibial cutting guide was used to make the appropriate tibial cut 90 degrees from the mechanical axis. A drop stephanie was then used to verify the cut. A size 7 tibial base plate was selected. the knee was flexed to 90 degrees and the soft tissues and posterior osteophytes were removed from the joint. 40 cc of the periarticular injection was injected into the posterior medial corner of the joint. The appropriate trials were then placed on the femur and tibia. A trial polyethylene was trialed to ensure proper balancing and stability of the knee. Patella tracking, was then verified and corrected appropriately as needed. The appropriate tibial internal rotation was then marked with a bovie. Our attention was then directed to the patella. Patella was inspected and cartilage found to be appropriate for retention patellar tracking was checked and deemed appropriate. Once we were happy lug holes were drilled for the femur and trial components were removed. the tibia was subluxed and pinned into place and the keel was punched and the canal was reamed. Final components were verified and opened. The wound was copiously irrigated with normal saline. When the implants were ready the components were impacted into place starting with the tibia, femur and finally the patella. The trial poly component was placed and the knee was placed in full extension. All excess cement was removed in the process. Once the cement had cured the tracking, alignment and balance were verified and a size 9 mm CS polyethylene component was placed. Once the final components were placed a 500 mL dilute Betadine 3 minute lavage was performed and the wound was copiously irrigated with normal saline solution and the periarticular injection was given. The wound was closed in a layer willis fashion using #1 vicryl interrupted sutures for the arthrotomy, 2-0 interrupted Vicryl suture for the subcuticular layer and stephanie for final skin closure. A sterile compressive dressing was then placed. The patient was then awakened from anesthesia, transferred to the [facility] and transferred to the PACU for recovery. Post op plan DVT ppx: 81 mg p.o. twice daily, thigh high compression stockings Follow up: in office in 2 weeks for wound check PT: to start POD #0 at hospital, outpatient PT should be arranged. Surgical Findings: Stable knee. Stage IV osteoarthritis Complications Complications: No Admit VTE Documentation VTE Present on Admission: No VTE Mechan Device Prophylaxis: SCD's and Thigh High NEDRA Hose VTE Pharm Prophylaxis ordered?: Yes
--- NOTE | 2025-05-28 11:00 | RAD_ITS ---
PROCEDURE: KNEE 1 OR 2 VIEWS 05/28/2025 REASON FOR EXAM: TKA TECHNIQUE: KNEE 1 OR 2 VIEWS COMPARISON: None FINDINGS: Three views of the left knee demonstrate postoperative changes. Surgical stephanie are seen overlying the anterior aspect of the left knee. Subcutaneous air is noted involving the subcutaneous tissues of the left knee. The left knee prosthetic device appears to be in satisfactory position. Soft tissue swelling of the knee is noted. RAD/Knee 1 or 2 Views IMPRESSION: Postsurgical changes. The left knee prosthetic device appears to be in satisfactory position without evidence of fracture or loosening. Subcutaneous air is noted as well as surgical stephanie from the recent surgery. Reading Location: [facility]
--- NOTE | 2025-05-28 11:00 | RAD_ITS ---
PROCEDURE: KNEE 1 OR 2 VIEWS 05/28/2025 REASON FOR EXAM: TKA TECHNIQUE: KNEE 1 OR 2 VIEWS COMPARISON: None FINDINGS: Three views of the left knee demonstrate postoperative changes. Surgical stephanie are seen overlying the anterior aspect of the left knee. Subcutaneous air is noted involving the subcutaneous tissues of the left knee. The left knee prosthetic device appears to be in satisfactory position. Soft tissue swelling of the knee is noted. RAD/Knee 1 or 2 Views IMPRESSION: Postsurgical changes. The left knee prosthetic device appears to be in satisfactory position without evidence of fracture or loosening. Subcutaneous air is noted as well as surgical stephanie from the recent surgery. Reading Location: [facility]
--- NOTE | 2025-05-28 11:50 | PCM.POST.ANE ---
Anesthesia: Postop Eval I Current Vital Signs Temperature: 96.8 F Pulse Rate: 61 Blood Pressure: 119/74 Respiratory Rate: 16 Pulse Ox: 98 Oxygen Delivery Method: Room Air Assessment Airway patent: Yes Spontaneous unlabored respirations: Yes Mental status: Awake and Calm nausea: No Vomiting: No Anesthesia Complication: No Fluid Hydration Crystalloid volume administer (ml): 800 Total IV fluid infused: 800 Progress Note Anesthesia document: Postop Eval 1 completed: Yes
--- NOTE | 2025-05-28 13:08 | POSTOPAN2_ITS ---
Anesthesia Postop Eval I Sum Postop Eval Completion status Anesthesia document: Postop Eval 1 completed: Yes Anesthesia Postop Eval I Summary Anesthesia Postop Eval I Summary: Anesthesia Postop Eval I: Assessment Summary Airway patent Yes 05/28/25 11:51 ONCOLOGY TRANSPLANT NETWORK MANAGER.[email or web address] Spontaneous unlabored Yes 05/28/25 11:51 ONCOLOGY TRANSPLANT NETWORK MANAGER.[email or web address] respirations Mental status Awake,Calm 05/28/25 11:51 ONCOLOGY TRANSPLANT NETWORK MANAGER.[email or web address] nausea No 05/28/25 11:51 ONCOLOGY TRANSPLANT NETWORK MANAGER.[email or web address] Vomiting No 05/28/25 11:51 ONCOLOGY TRANSPLANT NETWORK MANAGER.[email or web address] Anesthesia Postop Eval I: Fluid Summary Crystalloid volume administer 800 05/28/25 11:51 ONCOLOGY TRANSPLANT NETWORK MANAGER.[email or web address] (ml) Colloids volume administered ( ml) Blood Product volume administered (ml) Total IV fluid infused 800 05/28/25 11:51 ONCOLOGY TRANSPLANT NETWORK MANAGER.[email or web address] Anesthesia Postop Eval I: Summary Notes Anesthesia Complication No 05/28/25 11:51 ONCOLOGY TRANSPLANT NETWORK MANAGER.JOAN Anesthesia Complication Comment: Post-operative progress note Anesthesia: Postop Eval II Evaluation Mental status: Awake Pain Level: 2 nausea: No Vomiting: No
--- NOTE | 2025-05-28 13:08 | POSTOPAN2_ITS ---
Anesthesia Postop Eval I Sum Postop Eval Completion status Anesthesia document: Postop Eval 1 completed: Yes Anesthesia Postop Eval I Summary Anesthesia Postop Eval I Summary: Anesthesia Postop Eval I: Assessment Summary Airway patent Yes 05/28/25 11:51 DOCTOR OF CHIROPRACTIC.[email or web address] Spontaneous unlabored Yes 05/28/25 11:51 DOCTOR OF CHIROPRACTIC.TANVIU respirations Mental status Awake,Calm 05/28/25 11:51 DOCTOR OF CHIROPRACTIC.[email or web address] nausea No 05/28/25 11:51 DOCTOR OF CHIROPRACTIC.JBLOU Vomiting No 05/28/25 11:51 DOCTOR OF CHIROPRACTIC.JBLOU Anesthesia Postop Eval I: Fluid Summary Crystalloid volume administer 800 05/28/25 11:51 DOCTOR OF CHIROPRACTIC.JBLOU (ml) Colloids volume administered ( ml) Blood Product volume administered (ml) Total IV fluid infused 800 05/28/25 11:51 DOCTOR OF CHIROPRACTIC.[email or web address] Anesthesia Postop Eval I: Summary Notes Anesthesia Complication No 05/28/25 11:51 DOCTOR OF CHIROPRACTIC.JOAN Anesthesia Complication Comment: Post-operative progress note Anesthesia: Postop Eval II Evaluation Mental status: Awake Pain Level: 2 nausea: No Vomiting: No
--- NOTE | 2025-05-28 13:08 | PCM.POSTANE2 ---
Anesthesia Postop Eval I Sum Postop Eval Completion status Anesthesia document: Postop Eval 1 completed: Yes Anesthesia Postop Eval I Summary Anesthesia Postop Eval I Summary: Anesthesia Postop Eval I: Assessment Summary Airway patent Yes 05/28/25 11:51 SHELLFISH [email or web address] Spontaneous unlabored Yes 05/28/25 11:51 SHELLFISH GROWER.TANVIU respirations Mental status Awake,Calm 05/28/25 11:51 SHELLFISH GROWER.VIKYLOU nausea No 05/28/25 11:51 SHELLFISH GROWER.JBLOU Vomiting No 05/28/25 11:51 SHELLFISH GROWER.JBLOU Anesthesia Postop Eval I: Fluid Summary Crystalloid volume administer 800 05/28/25 11:51 SHELLFISH GROWER.[email or web address] (ml) Colloids volume administered ( ml) Blood Product volume administered (ml) Total IV fluid infused 800 05/28/25 11:51 SHELLFISH GROWER.[email or web address] Anesthesia Postop Eval I: Summary Notes Anesthesia Complication No 05/28/25 11:51 SHELLFISH GROWER.JOAN Anesthesia Complication Comment: Post-operative progress note Anesthesia: Postop Eval II Evaluation Mental status: Awake Pain Level: 2 nausea: No Vomiting: No
--- NOTE | 2025-05-28 13:08 | PCM.POSTANE2 ---
Anesthesia Postop Eval I Sum Postop Eval Completion status Anesthesia document: Postop Eval 1 completed: Yes Anesthesia Postop Eval I Summary Anesthesia Postop Eval I Summary: Anesthesia Postop Eval I: Assessment Summary Airway patent Yes 05/28/25 11:51 LEHR ATTENDANT.[email or web address] Spontaneous unlabored Yes 05/28/25 11:51 LEHR ATTENDANT.TANVIU respirations Mental status Awake,Calm 05/28/25 11:51 LEHR ATTENDANT.VIKYLOU nausea No 05/28/25 11:51 LEHR ATTENDANT.JBLOU Vomiting No 05/28/25 11:51 LEHR ATTENDANT.JBLOU Anesthesia Postop Eval I: Fluid Summary Crystalloid volume administer 800 05/28/25 11:51 LEHR ATTENDANT.JBLOU (ml) Colloids volume administered ( ml) Blood Product volume administered (ml) Total IV fluid infused 800 05/28/25 11:51 LEHR ATTENDANT.VIKYLOU Anesthesia Postop Eval I: Summary Notes Anesthesia Complication No 05/28/25 11:51 LEHR ATTENDANT.JOAN Anesthesia Complication Comment: Post-operative progress note Anesthesia: Postop Eval II Evaluation Mental status: Awake Pain Level: 2 nausea: No Vomiting: No
[2025-05-28] MEDS: Cefazolin 1 GM/50 ML BAG IV (13:54)
== END 2025-05-28 16:05 | disposition home or self-care (01) ==
LOC: SDC 06:46 → AC 06:47
PROVIDERS: Anesthesiology; PCP Nurse Practitioner Family; Referring Provider Specialist; Visit Provider Specialist
PROC: (CPT 27447; principal; 2025-05-28 08:35)
DX: M17.12 Unilateral primary osteoarthritis, left knee (principal); J44.9 Chronic obstructive pulmonary disease, unspecified; E11.9 Type 2 diabetes mellitus without complications; F17.210 Nicotine dependence, cigarettes, uncomplicated; E66.3 Overweight; Z68.29 Body mass index [BMI] 29.0-29.9, adult; M21.062 Valgus deformity, not elsewhere classified, left knee; I10 Essential (primary) hypertension
CPT/HCPCS: 27447; 01402; 64447; 73560; 82962; 83735; 97162; C1776; J2405; J3475

== ENCOUNTER → 2025-06-01 | Outpatient (CLI) | payer BC, SELFPAY ==
--- NOTE | 2025-06-01 14:13 | VDLE_ITS ---
Reason For Study Reason For Study: LLE Pain RIGHT LEFT CFV is compressible, spontaneous, phasic, competent GSV is normal. and demonstrates normal augmentation. CFV is compressible, spontaneous, phasic, competent, Procedure and demonstrates normal augmentation. This is a venous duplex using B-mode, color flow and FV is compressible, spontaneous, phasic, competent spectral Doppler. and demonstrates normal augmentation. Exam performed in department. POP V is compressible, spontaneous, phasic, competent The exam was diagnostic. and demonstrates normal augmentation. A preliminary report was called and/or faxed to T/P Trunk is compressible. [facility]. PTV is compressible. LT PerV is compressible. VL/Venous Duplex US, Unilateral Interpretation Summary Deep veins of the left lower extremity are patent and compressible segmentally. There is no evidence of left lower extremity deep vein thrombosis. Valvular competence appears intact within the p roximal deep venous system on the left . The left great saphenous vein appears patent and compressible segmentally. The right common femoral vein is patent and compressible . Ordering Physician: Travis Mcdaniel Referring Physician: Kathy Sandy Performed By: Edmundo Jama RVT
== END | disposition home or self-care (01) ==
LOC: CVS 14:07
PROVIDERS: PCP Nurse Practitioner Family; Referring Provider Specialist; Visit Provider Specialist
DX: R22.42 Localized swelling, mass and lump, left lower limb (principal)
CPT/HCPCS: 93971

== ENCOUNTER 2025-07-18 12:30 | Outpatient (RCR) | payer BC, SELFPAY ==
--- NOTE | 2025-05-30 13:37 | HP.PTEVAL_ITS ---
Patient's Visit Information Visit Information Visit Information: ELIZABETH WILKES is a 64 year old M referred to Physical Therapy by Abdulaziz Levi PA-C with a diagnosis of L TKA, DOS: . Date of Evaluation: 05/30/25 Physical Therapist: Chester Daugherty DPT Visit Plan Frequency: 3x /Week Duration: 6 Weeks Plan: 1) L knee ROM progressing to 0-0-120deg. 2) edema control, vaso/ice 3) gait progression as able. Work on TKE, knee flexion and step length. Progression to LRD 4) functional strengthening. Subjective Subjective: Pt. is here today for his initial evaluation with diagnosis of L TKA, DOS: 05/28/25. Pt. arrives with use of FWW. Pt. reports having pain at 05/31. Pt. reports having a high pain tolerance. He reports today has been more painful than the past few days. Pt. is taking medications as prescribed. Pt. has been doing his exercises at home, but leg lifts have been very difficult. Pt. is also having trouble with sleeping. Pt. is icing as prescribed. Pt. works for [employer] and is hopeful to get to work when ready. He reports that his knee feels wobbly. Pt. reports no chest pain, no calf pain and no difficulty with rosa m athing. Pt. is hopeful to increase his ROM and strength to get back to all hobbies and work activities. Pain L knee: Pain Intensity (Out of 10): 7 Pain Intensity Range: 4 and 10 Objective Objective: POSTURE: Pt. has increased wt. shift to R side in stance. Lacks TKE on L knee in stance. PALPATION: Negative homans sign. Pt. has bandage in place. To be removed at the end of the week. No signs of infection noted. NEURO: Normal sensation and normal achilles DTR noted in BLEs. ROM: L KNEE AROM: 0-9-78deg. PROM 0-5-90deg. Pt. has tightness in B HS. MMT: R knee 5/5 throughout. L knee: Ext 3#, flexion 8#; hip: flexion 0#. abd 5#. GAIT: Pt. ambulates with FWW, decreased TKE on LLE, decreased knee flexion during swing phase. Pt. has increased use of FWW during L stance phase as well. Balance/Special Test Scores Lower Extremity Functional Score: 20 TUG Test Time Seconds: 55 30 Second Chair Rise Test Seconds: 5 WOMAC Percentatge: 100 Goals Goal 1:: LTG: Pt. to be I with HEP. Goal Time Frame: 4-6 Weeks Goal 2:: STG: Pt. to have increased L knee ROM to 0-0-120deg. Goal Time Frame: 2-4 Weeks Goal 3:: LTG: Pt. to complete TUG with time less than 10seconds without AD. Goal Time Frame: 4-6 Weeks Goal 4:: LTG: Pt. to complete 30sec sit to stand test with 15 reps Goal Time Frame: 4-6 Weeks Goal 5:: LTG: Pt. to have symmetrical strength between BLEs. Goal Time Frame: 4-6 Weeks Goal 6:: LTG: Pt. to be able to ambulate with normalized gait pattern without use of AD. Goal Time Frame: 4-6 Weeks Rehabilitation Potential Physical Therapy Diagnosis: Pt. has signs and symptoms consistent with L TKA, DOS: 05/28/25. Pt. has subsequent hypomobility, weakness, difficulty with walking, and increased pain. Pt. would benefit from PT to address the above limitations progressing back to all work and recreational activities. Rehabilitation Potential: Excellent Anticipated Interventions Patient/Client Instruction: Educate patient on: Condition, Plan of Care, Risk Factors and Benefits of Fitness Program For the Purpose of:: To improve health and function, To foster healthy habits, To improve decision making, To facilitate caregiver knowledge, To improve self management, To prevent re-injury and To improve ability to perform tasks related to life management Therapeutic Exercise to Include: Strength training, Power training, Endurance training, Balance training, Postural training, Flexibilty training, Gait and locomotor training, Passive ROM and Active ROM For the Purpose of:: To decrease pain, To increase ROM, To improve nutrient delivery to tissue, To increase oxygenation perfusion, To improve muscle pe rformance and motor function, To improve ability to perform ADL's, To improve gait and locomotor functions, To improve health of tissue, To decrease soft tissue restriction, To increase flexibility/ROM, To improve endurance and To improve balance Manual Therapy Techniques to Include: Mobilization and Passive ROM For the Purpose of:: To decrease pain, To decrease swelling/inflammation, To increase ROM, To improve nutrient delivery to tissue, To increase oxygenation perfusion, To improve muscle performance and motor function and To improve ability to perform ADL's Cryotherapy (ice pack, ice massage): Yes Vasopneumatic device: Yes For the Purpose of:: To decrease pain, To decrease swelling/inflammation and To increase ROM Text: Thank you for the opportunity to evaluate your patient. For Medicare and Medicare HMO plans, please review the plan of care and approve it. It will need to be FAXED BACK to us at [phone] for Medicare purposes. For Medicare only, by signing this I certify the plan of care. Please let me know if there are questions or concerns regarding this plan of care. Physician Signature: Date:
--- NOTE | 2025-07-18 16:19 | HP.PTREVAL ---
Re-Evaluation Intro: Abdulaziz Levi PA-C, It has been my pleasure to treat ELIZABETH WILKES over the last 12 visits for L TKA, DOS: . Please see the progress note below for an update on the physical therapy plan of care! Subjective Subjective: Pt. reports minimal pain in his L knee. Pt. reports having some in his L hip, but mostly during therapy. PT. is to follow back up with physician in ~5 weeks to discuss going back to work at that time. Pt. reports being 60-70-% better overall. Pt. has been walking more and more at home and in community. he has been walking to grocery store ~[address] Objective Objective/Function: ROM: 0-0-122deg. MMT: RLE: knee: ext 49.5#, flex 36.3# LLE: knee: ext 42.4#, flex 43.6# GAIT: Pt. has a slight antalgic pattern with gait without AD, but much better with cane. Pt. reports walking upt 2 miles to grocery store a few times per week. STAIRS: Pt. is able to complete with reciprocal pattern with 1 HR without increase in symptoms. TU.1 sec no AD 30sec sit to stand test: 10 with use of UEs, increased L hip pain. Incrased anterior L hip pain with initial getting up. Pt. is overall doing well. He has good ROM. His strength is improving as well. n Plan Plan Plan: Pt. is going to do is HEP focusing on stairs, squats and progressive walking for the next two week then follow back up with PT. Pt. has concerns about PT cost. PT. is to call back if having any issues. Balance/Gait/Functional tests Balance/Special Test Scores Lower Extremity Functional Score: 56 TUG Test Time Seconds: 55 Tug Test: <20 sec.=mostly independent 30 Second Chair Rise Test Seconds: 10 WOMAC Percentage: 100 Goals Goals Goal 1:: LTG: Pt. to be I with HEP. Goal Time Frame: 4-6 Weeks Goal Progress: Progressing Goal 2:: STG: Pt. to have increased L knee ROM to 0-0-120deg. Goal Time Frame: 2-4 Weeks Goal Progress: Goal Met Goal 3:: LTG: Pt. to complete TUG with time less than 10seconds without AD. Goal Time Frame: 4-6 Weeks Goal Progress: Progressing Goal 4:: LTG: Pt. to complete 30sec sit to stand test with 15 reps Goal Time Frame: 4-6 Weeks Goal Progress: Progressing Goal 5:: LTG: Pt. to have symmetrical strength between BLEs. Goal Time Frame: 4-6 Weeks Goal Progress: Progressing Goal 6:: LTG: Pt. to be able to ambulate with normalized gait pattern without use of AD. Goal Time Frame: 4-6 Weeks Goal Progress: Progressing Anticipated Interventions Anticipated Interventions Patient/Client Instruction: Educate patient on: Condition, Plan of Care, Risk Factors and Benefits of Fitness Program For the Purpose of:: To improve health and function, To foster healthy habits, To improve decision making, To facilitate caregiver knowledge, To improve self management, To prevent re-injury and To improve ability to perform tasks related to life management Therapeutic Exercise to Include: Strength training, Power training, Endurance training, Balance training, Postural training, Flexibilty training, Gait and locomotor training, Passive ROM and Active ROM For the Purpose of:: To decrease pain, To increase ROM, To improve nutrient delivery to tissue, To increase oxygenation perfusion, To improve muscle performance and motor function, To improve ability to perform ADL's, To improve gait and locomotor functions, To improve health of tissue, To decrease soft tissue restriction, To increase flexibility/ROM, To improve endurance and To improve balance Manual Therapy Techniques to Include: Mobilization and Passive ROM For the Purpose of:: To decrease pain, To decrease swelling/inflammation, To increase ROM, To improve nutrient delivery to tissue, To increase oxygenation perfusion, To improve muscle performance and motor function and To improve ability to perform ADL's Cryotherapy (ice pack, ice massage): Yes Vasopneumatic device: Yes For the Purpose of:: To decrease pain, To decrease swelling/inflammation and To increase ROM Re-Evaluation Ending Re-evaluation ending: Please do not hesitate to contact me at [phone] by phone or if you have questions or concerns regarding this new plan of care! Sincerely, Chester Daugherty DPT
== END 2025-07-18 19:00 | disposition home or self-care (01) ==
LOC: PT 12:30
PROVIDERS: PCP Nurse Practitioner Family; Referring Provider Physician Assistant Surgical; Visit Provider Physician Assistant Surgical
DX: M17.12 Unilateral primary osteoarthritis, left knee (principal); M21.062 Valgus deformity, not elsewhere classified, left knee
CPT/HCPCS: 97016; 97110; 97161; 97530